=== PATIENT | male | born 1970 | race Caucasian/White ===

== ENCOUNTER 2020-01-01 15:10 | Emergency (ER) | payer SELFPAY ==
[2020-01-01] MEDS ORDERED: Albuterol/Ipratropium 3.0-0.5 MG/3 ML Neb Soln NEB ONE (15:23)
[2020-01-01] MEDS ORDERED: methylPREDNISolone Sodium Succinate 125 MG/2 ML SDV IM ONE (15:23)
--- NOTE | 2020-01-01 15:30 | EDM.PDOC ---
Scribed by Jovita Richards 01/01/20 1530 for Boom Zayas PA ED HPI GENERAL MEDICAL PROBLEM - General Chief Complaint: Respiratory Problem Stated Complaint: SOB Time Seen by Provider: 01/01/20 15:19 Source of Information: Reports: Patient, RN, RN Notes Reviewed History Limitations: Reports: No Limitations - History of Present Illness INITIAL COMMENTS - FREE TEXT/NARRATIVE: This 49 yo male patient reports to the ED with a 5 day history of increased shortness of breath. The patient reports his symptoms have been getting worse over the past 3 days. The patient has not been seen in the clinic for his current symptoms. The patient reports he thinks he is allergic to a cat that his son has living in their house. The patient reports he has been using a family 3Nod nebulizer for the past couple of days with little or no improvement. Duration: Day(s):, Constant, Getting Worse Location: Reports: Chest Quality: Reports: Other Severity: Moderate Improves with: Reports: None Worsens with: Reports: None Context: Reports: Other Associated Symptoms: Reports: Shortness of Breath - Related Data Allergies Allergy/AdvReac Type Severity Reaction Status Date / Time No Known Allergies Allergy Verified 01/01/20 15:24 Home Meds: Home Meds Aspirin 2 tab PO QAM 01/01/20 [History] Brimonidine/Timolol [Combigan 0.2%/0.5% Ophth Soln] 1 drop EYELF DAILY 01/01/20 [History] Calcium Carbonate/Vitamin D3 [Caltrate 600+D 1500 MG-400 Units] 1 tab PO BID 01/01/20 [History] Folic Acid 1 mg PO DAILY 01/01/20 [History] Furosemide 80 mg PO DAILY 01/01/20 [History] Insulin Aspart [NovoLOG] 12 unit INJECT TID 01/01/20 [History] Insulin Detemir [Levemir Flextouch] 42 unit INJECT QAM 01/01/20 [History] Latanoprost 1 drop EYEBOTH DAILY 01/01/20 [History] Pen Needle, Diabetic [Ulticare Pen Needle] 1 each INJECT ASDIRECTED 01/01/20 [History] Potassium Chloride [K-Tab ER] 20 meq PO DAILY 01/01/20 [History] metHOTREXate sodium [Methotrexate] 10 tab PO WEEKLY 01/01/20 [History] predniSONE [Prednisone] 2 tab PO DAILY 01/01/20 [History] ED ROS GENERAL - Review of Systems Review Of Systems: Comprehensive ROS is negative, except as noted in HPI. ED EXAM, GENERAL - Physical Exam Exam: See Below Exam Limited By: No Limitations General Appearance: Alert, WD/WN, Moderate Distress, Obese Eye Exam: Bilateral Eye: EOMI, Normal Inspection, PERRL Nose: Other (copious nasal secretions) Throat/Mouth: Normal Inspection, Normal Lips, Normal Teeth, Normal Gums, Normal Oropharynx, Normal Voice, No Airway Compromise Head: Atraumatic Neck: Normal Inspection, Supple, Non-Tender, Full Range of Motion Respiratory/Chest: Rhonchi, Wheezing Cardiovascular: Normal Peripheral Pulses, Regular Rate, Rhythm, No Edema, No Gallop, No JVD, No Murmur, No Rub GI/Abdominal: Normal Bowel Sounds, Soft, Non-Tender, No Organomegaly, No Distention, No Abnormal Bruit, No Mass (Male) Exam: Deferred Rectal (Males) Exam: Deferred Back Exam: Normal Inspection, Full Range of Motion, NT Extremities: Normal Inspection, Normal Range of Motion, Non-Tender, Normal Capillary Refill, No Pedal Edema Neurological: Alert, Oriented, CN II-XII Intact, Normal Cognition, Normal Gait, Normal Reflexes, No Motor/Sensory Deficits Psychiatric: Normal Affect, Normal Mood Skin Exam: Warm, Dry, Intact, Normal Color, No Rash Lymphatic: No Adenopathy Course - Vital Signs Last Recorded V/S: Last Vital Signs Temp 37.1 C 01/01/20 16:04 Pulse 78 01/01/20 16:04 Resp 24 H 01/01/20 16:04 BP 111/73 01/01/20 16:04 Pulse Ox 97 01/01/20 16:04 - Orders/Labs/Meds Orders: Active Orders 24 hr Category Date Time Status RT Aerosol Therapy [RC] ASDIRECTED Care 01/01/20 15:23 Active CULTURE BLOOD [BC] Stat Lab 01/01/20 15:40 Received CULTURE SPUTUM + SMEAR [RM] Stat Lab 01/01/20 16:00 Received Labs: Laboratory Tests 01/01/20 01/01/20 01/01/20 Range/Units 15:40 15:40 15:40 WBC 18.3 H (5.0-10.0) 10^3/uL RBC 4.23 L (4.6-6.2) 10^6/uL Hgb 14.7 (14.0-18.0) g/dL Hct 44.1 (40.0-54.0) % MCV 104.3 H (80-100) fL MCH 34.8 H (27.0-34.0) pg MCHC 33.3 (33.0-35.0) g/dL Plt Count 193 (150-450) 10^3/uL Neut % (Auto) 89.4 H (42.2-75.2) % Lymph % (Auto) 5.5 L (20.5-50.1) % [place] % (Auto) 4.5 (2-8) % Eos % (Auto) 0.3 L (1.0-3.0) % Baso % (Auto) 0.3 (0.0-1.0) % Sodium 140 (136-145) mmol/L Potassium 4.0 (3.5-5.1) mmol/L Chloride 103 (98-107) mmol/L Carbon Dioxide 27 (21-32) mmol/L Anion Gap 14.0 H (7-13) mEq/L BUN 12 (7-18) mg/dL Creatinine 1.08 (0.70-1.30) mg/dL Est Cr Clr Drug Dosing 70.39 mL/min Estimated GFR (MDRD) > 60 BUN/Creatinine Ratio 11.1 (No establ ref range) Glucose 146 H (74-99) mg/dL Lactic Acid 1.4 (0.4-2.0) mmol/L Calcium 8.6 (8.5-10.1) mg/dL Total Bilirubin 1.1 H (0.2-1.0) mg/dL AST 16 (15-37) U/L ALT 25 (16-63) U/L Alkaline Phosphatase 61 (46-116) U/L B-Natriuretic Peptide (0-100) pg/ml Total Protein 7.5 (6.4-8.2) g/dL Albumin 3.3 L (3.4-5.0) g/dL Globulin 4.2 Albumin/Globulin Ratio 0.79 SARS-CoV-2 RNA (RT-PCR) (NEGATIVE) 01/01/20 01/01/20 Range/Units 15:40 15:55 WBC (5.0-10.0) 10^3/uL RBC (4.6-6.2) 10^6/uL Hgb (14.0-18.0) g/dL Hct (40.0-54.0) % MCV (80-100) fL MCH (27.0-34.0) pg MCHC (33.0-35.0) g/dL Plt Count (150-450) 10^3/uL Neut % (Auto) (42.2-75.2) % Lymph % (Auto) (20.5-50.1) % [place] % (Auto) (2-8) % Eos % (Auto) (1.0-3.0) % Baso % (Auto) (0.0-1.0) % Sodium (136-145) mmol/L Potassium (3.5-5.1) mmol/L Chloride (98-107) mmol/L Carbon Dioxide (21-32) mmol/L Anion Gap (7-13) mEq/L BUN (7-18) mg/dL Creatinine (0.70-1.30) mg/dL Est Cr Clr Drug Dosing mL/min Estimated GFR (MDRD) BUN/Creatinine Ratio (No establ ref range) Glucose (74-99) mg/dL Lactic Acid (0.4-2.0) mmol/L Calcium (8.5-10.1) mg/dL Total Bilirubin (0.2-1.0) mg/dL AST (15-37) U/L ALT (16-63) U/L Alkaline Phosphatase (46-116) U/L B-Natriuretic Peptide 362 H (0-100) pg/ml Total Protein (6.4-8.2) g/dL Albumin (3.4-5.0) g/dL Globulin Albumin/Globulin Ratio SARS-CoV-2 RNA (RT-PCR) Negative (NEGATIVE) Meds: Medications Discontinued Medications Generic Name Dose Route Start Last Admin Trade Name Freq PRN Reason Stop Dose Admin Albuterol/Ipratropium 3 ml 01/01/20 15:23 01/01/20 15:36 Duoneb 3.0-0.5 Mg/3 Ml NEB 01/01/20 15:24 3 ml ONETIME ONE Administration Azithromycin 500 mg 01/01/20 16:43 Zithromax PO 01/01/20 16:44 ONETIME ONE Azithromycin 1,000 mg 01/01/20 16:43 Zithromax 200 Mg/5 Ml Susp PO 01/01/20 16:44 ONETIME ONE Ceftriaxone Sodium 1 gm 01/01/20 16:50 Rocephin IM 01/01/20 16:51 ONETIME ONE Methylprednisolone Sodium Succinate 125 mg 01/01/20 15:23 01/01/20 15:44 Solu-Medrol IM 01/01/20 15:24 125 mg ONETIME ONE Administration Departure - Departure Time of Disposition: 16:53 Disposition: Home, Self-Care 01 Condition: Fair Clinical Impression: Bronchitis - Discharge Information *PRESCRIPTION DRUG MONITORING PROGRAM REVIEWED*: Not Applicable *COPY OF PRESCRIPTION DRUG MONITORING REPORT IN PATIENT PADMINI: Not Applicable Instructions: Upper Respiratory Infection, Adult, [id number] Forms: ED Department Discharge Care Plan Goals: The patient was advised of the examination, lab and x-ray results during the visit. The patient was given an injection of Solumedrol, an injection of Rocephin and an oral dose of Azithromycin while in the ED. The patient was discharged with a script for Azithromycin (500 mg) #4 to take 1 by mouth daily for 4 days. The patient was encouraged to follow-up with his primary care facility for continued evaluation and further management. If the patient has any additional symptoms or concerns, the patient should either visit his primary care facility or return to the emergency department. Sepsis Event Note (ED) - Focused Exam Vital Signs: Vital Signs Temp Pulse Resp BP BP Pulse Ox 01/01/20 16:04 37.1 C 78 24 H 111/73 106/38 L 97 01/01/20 15:37 70 - My Orders Last 24 Hours: My Active Orders 01/01/20 15:23 RT Aerosol Therapy [RC] ASDIRECTED 01/01/20 15:40 CULTURE BLOOD [BC] Stat 01/01/20 16:00 CULTURE SPUTUM + SMEAR [RM] Stat - Assessment/Plan Last 24 Hours: My Active Orders 01/01/20 15:23 RT Aerosol Therapy [RC] ASDIRECTED 01/01/20 15:40 CULTURE BLOOD [BC] Stat 01/01/20 16:00 CULTURE SPUTUM + SMEAR [RM] Stat I have read and agree with the documentation that has been completed regarding this visit. By signing this record, I attest that the documentation was completed in my physical presence and is an accurate record of the encounter.
[2020-01-01 16:08] LABS: CHLORIDE,CL 103 mmol/L (98-107); SODIUM,NA 140 mmol/L (136-145)
[2020-01-01] MEDS ORDERED: Azithromycin 200 MG/5 ML Susp 30 ML Bottle PO ONE (16:43)
[2020-01-01] MEDS ORDERED: Azithromycin 250 MG Tab PO ONE (16:43)
--- NOTE | 2020-01-01 16:43 | CR ---
PROCEDURE INFORMATION: Exam: XR Chest, 2 Views Exam date and time: 01/01/2020 4:32 PM Age: 49 years old Clinical indication: Shortness of breath; Additional info: Short of breath TECHNIQUE: Imaging protocol: XR of the chest Views: 2 views. COMPARISON: No relevant prior studies available. FINDINGS: Lungs: Linear atelectasis or scarring at the left lung base. Scarring at right lung base. There are no suspicious pulmonary nodules or areas of lung consolidation. Pleural space: Unremarkable. No pleural effusion. No pneumothorax. Heart/Mediastinum: Unremarkable. No cardiomegaly. Bones/joints: Age appropriate. IMPRESSION: 1. No pneumonia. 2. Linear atelectasis or scarring at the left lung base. Scarring at right lung base.
[2020-01-01] MEDS ORDERED: cefTRIAXone 1 GM Vial IM ONE (16:50)
[2020-01-01] MEDS: Water For Injection, Sterile 20 ML ONE ×2 (17:13→17:39)
[2020-01-01] MEDS ORDERED: WATER FOR INJECTION STERILE INJECT ONE (17:15)
== END 2020-01-01 17:30 | disposition home or self-care (01) ==
LOC: DL.ED 15:10
DX: J40 Bronchitis, not specified as acute or chronic (principal); Z20.828 Contact with and (suspected) exposure to other viral communicable diseases; Z79.82 Long term (current) use of aspirin; Z79.899 Other long term (current) drug therapy
CPT/HCPCS: 36415; 71046; 80053; 83605; 83880; 85025; 87040; 87070; 87205; 87635; 94640; 96372; 99285; A9270; J0696; J2930; J7620-GY; U0002

== ENCOUNTER 2020-10-11 16:18 | Inpatient (IN) | payer MEDICARE, OTHER ==
[2020-10-11] MEDS ORDERED: Sodium Chloride 0.9% 10 ML Syringe FLUSH PRN ×2 (16:49→17:28)
[2020-10-11] MEDS ORDERED: Sodium Chloride 0.9% 1,000 ML IV ONE ×2 (16:52→17:28)
[2020-10-11] MEDS ORDERED: Ibuprofen 800 MG Tab PO ONE (16:58)
[2020-10-11] MEDS ORDERED: Acetaminophen 325 MG Tab PO ONE (16:58)
--- NOTE | 2020-10-11 17:05 | CR ---
PROCEDURE INFORMATION: Exam: XR Chest Exam date and time: 10/11/2020 5:00 PM Age: 50 years old Clinical indication: Fever and shortness of breath; Additional info: Fever, short of breath TECHNIQUE: Imaging protocol: XR of the chest Views: 1 view. COMPARISON: CR Chest 2V 01/01/2020 4:32 PM FINDINGS: Lungs: Unremarkable. No consolidation. Pleural spaces: Unremarkable. No pleural effusion. No pneumothorax. Heart/Mediastinum: Unremarkable. No cardiomegaly. Bones/joints: Unremarkable. IMPRESSION: No acute findings.
--- NOTE | 2020-10-11 17:06 | EDM.PDOC ---
<RuchiBridgetteAdalbertorhondaEmekaHilda - Last Filed: 10/11/20 18:26> ED HPI GENERAL MEDICAL PROBLEM - General Chief Complaint: Respiratory Problem Stated Complaint: COVID+ Time Seen by Provider: 10/11/20 17:01 Source of Information: Reports: Patient History Limitations: Reports: No Limitations - History of Present Illness INITIAL COMMENTS - FREE TEXT/NARRATIVE: Patient is a 50 y.o. male who presents to the ED with c/o feeling short of breath, generalized body aches, and fever. The patient states he began feeling short of breath 3 days ago and developed body aches. He states his symptoms have persisted and worsened over the past 3 days and he's had a fever with chills the past two days of 102 Fahrenheit. He took ibuprofen yesterday with no relief. The patient reports he's also had associated headache, rhinorrhea, sore throat, and cough with clear production. The patient also reports he developed sharp pain in his left hand today and noticed sores on the tips of his fingers. He denies dizziness, vision changes, chest pain, abdominal pain, hematuria, dysuria, or hematochezia or melena. Last bowel movement was today. He did not take his daily medications today. He denies any sick contacts. He denies alcohol, tobacco or illicit drug use. 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 Generalized Pain Score (Numeric/FACES): 10 - Related Data Allergies Allergy/AdvReac Type Severity Reaction Status Date / Time No Known Allergies Allergy Verified 10/11/20 16:37 Home Meds: Home Meds Brimonidine/Timolol [Combigan 0.2%/0.5% Ophth Soln] 1 drop EYELF DAILY 01/01/20 [History] Calcium Carbonate/Vitamin D3 [Caltrate 600+D 1500 MG-400 Units] 1 tab PO BID 01/01/20 [History] Folic Acid 1 mg PO DAILY 01/01/20 [History] Furosemide 80 mg PO DAILY 01/01/20 [History] Insulin Aspart [NovoLOG] 12 unit INJECT TID 01/01/20 [History] Insulin Detemir [Levemir Flextouch] 42 unit INJECT QAM 01/01/20 [History] Latanoprost 1 drop EYEBOTH DAILY 01/01/20 [History] Pen Needle, Diabetic [Ulticare Pen Needle] 1 each INJECT ASDIRECTED 01/01/20 [History] Potassium Chloride [K-Tab ER] 20 meq PO DAILY 01/01/20 [History] metHOTREXate sodium [Methotrexate] 10 tab PO WEEKLY 01/01/20 [History] predniSONE [Prednisone] 1 tab PO DAILY 01/01/20 [History] Albuterol/Ipratropium [DuoNeb 3.0-0.5 MG/3 ML] 3 ml NEB Q6H PRN 10/11/20 [History] Non-Formulary Medication [NF Drug] 1 applic TOP BID 10/11/20 [History] Sertraline [Zoloft] 100 mg PO DAILY 10/11/20 [History] Sildenafil Citrate [Viagra] 50 mg PO ASDIRECTED PRN 10/11/20 [History] Aspirin [Halfprin] 81 mg PO DAILY 10/12/20 [History] Past Medical History HEENT History: Reports: Cataract, Glaucoma, Impaired Vision Cardiovascular History: Reports: Heart Failure Respiratory History: Reports: Asthma, SOB Musculoskeletal History: Reports: RA Endocrine/Metabolic History: Reports: Diabetes, Type II Hematologic History: Reports: Folic Acid Social & Family History - Family History Family Medical History: No Pertinent Family History - Tobacco Use Tobacco Use Status *Q: Current Every Day Tobacco User Years of Tobacco use: 40 Packs/Tins Daily: 1 - Caffeine Use Caffeine Use: Reports: None - Recreational Drug Use Recreational Drug Use: No ED ROS GENERAL - Review of Systems Review Of Systems: Comprehensive ROS is negative, except as noted in HPI. ED EXAM, GENERAL - Physical Exam Exam: See Below Exam Limited By: No Limitations General Appearance: Alert, WD/WN, Mild Distress Eye Exam: Bilateral Eye: EOMI, Normal Inspection, PERRL Ears: Normal External Exam, Normal Canal, Hearing Grossly Normal, Normal TMs Nose: Normal Inspection, Normal Mucosa, No Blood Throat/Mouth: Normal Inspection, Normal Lips, Normal Teeth, Normal Gums, Normal Oropharynx, Normal Voice, No Airway Compromise Head: Atraumatic, Normocephalic Neck: Normal Inspection, Supple, Non-Tender, Full Range of Motion Respiratory/Chest: No Respiratory Distress, Lungs Clear, Normal Breath Sounds, No Accessory Muscle Use, Chest Non-Tender Cardiovascular: Normal Peripheral Pulses, No Edema, No Gallop, No JVD, No Murmur, No Rub, Tachycardia GI/Abdominal: Normal Bowel Sounds, Soft, Non-Tender, No Organomegaly, No Distention, No Abnormal Bruit, No Mass (Male) Exam: Deferred Rectal (Males) Exam: Deferred Back Exam: Normal Inspection, Full Range of Motion, NT Extremities: Normal Inspection, Normal Range of Motion, Non-Tender, Normal Capillary Refill, No Pedal Edema Neurological: Alert, Oriented, CN II-XII Intact, Normal Cognition, Normal Gait, Normal Reflexes, No Motor/Sensory Deficits Psychiatric: Normal Affect, Normal Mood Skin Exam: Warm, Dry, Intact, Other (Patient has increased redness of the left fingertips and has blood filled blisters on the distal 5th and 2nd digit ) Lymphatic: No Adenopathy Course - Radiology Interpretation Free Text/Narrative:: Chest x-ray Conclusion: No acute findings. See radiologist report. Clay Sinha MD - Re-Assessments/Exams Free Text/Narrative Re-Assessment/Exam: Reviewed the patient's physical exam, chest xray, and lab results. Chest xray showed no acute findings. WBC was elevated at 21.1, D-dimer was >5,000, Sodium low at 127 and CRP was elevated at >36. Covid and Influenza were both negative. Patient was febrile at 38.6, BP 140/44 and pulse was 110. Patient meets sepsis criteria. He was given 800mg ibuprofen and 975 mg acetaminophen. Patient was also started on 2 liters normal saline Levaquin. 2 mg morphine for pain with good relief. 10/11/20 18:37 Departure - Departure Disposition: Admitted As Inpatient 64 Clinical Impression: Generalized body aches, Hyponatremia, Elevated d-dimer Sepsis Qualifiers: Sepsis type: sepsis due to unspecified organism Sepsis acute organ dysfunction status: without acute organ dysfunction Qualified Code(s): A41.9 - Sepsis, unspecified organism Rheumatoid arthritis Qualifiers: Rheumatoid arthritis location: unspecified site Rheumatoid factor presence: unspecified presence Qualified Code(s): M06.9 - Rheumatoid arthritis, unspecified - Discharge Information Sepsis Event Note (ED) - Evaluation Sepsis Screening Result: No Definite Risk <Deandre Flores Souleymane - Last Filed: 10/11/20 18:52> Course - Re-Assessments/Exams Free Text/Narrative Re-Assessment/Exam: 10/11/20 I personally performed or re-performed the physical examination and medical decision making. I have verified all student documentation or findings, including history, physical exam and/or medical decision making. <Trish Guthrie - Last Filed: 10/12/20 02:50> ED HPI GENERAL MEDICAL PROBLEM - General Source of Information: Reports: Patient History Limitations: Reports: No Limitations ED ROS GENERAL - Review of Systems Review Of Systems: See Below Constitutional: Reports: Fever, Chills, Malaise, Decreased Appetite HEENT: Reports: No Symptoms Respiratory: Reports: Shortness of Breath GI/Abdominal: Reports: Diarrhea (last night watery multiple stools) Musculoskeletal: Reports: Joint Pain, Muscle Pain Skin: Reports: Rash (finger tips, purple painful) ED EXAM, GENERAL - Physical Exam Exam: See Below Exam Limited By: No Limitations General Appearance: Alert, Mild Distress, Obese Ears: Normal External Exam, Hearing Grossly Normal Nose: Normal Inspection Throat/Mouth: Normal Inspection Head: Atraumatic, Normocephalic Neck: Normal Inspection Respiratory/Chest: Lungs Clear, Wheezing (faint expiratory, clears with cough or deep breathing) GI/Abdominal: Normal Bowel Sounds, Soft Extremities: Normal Inspection, Normal Range of Motion Neurological: Alert, Oriented, Normal Cognition Psychiatric: Normal Affect Skin Exam: Warm, Dry, Intact, Wound/Incision (purpuric lesion fingertips and base thumb) Course - Vital Signs Last Recorded V/S: Last Vital Signs Temp 96.3 F L 10/11/20 20:29 Pulse 82 10/12/20 00:00 Resp 16 10/11/20 20:29 BP 103/46 L 10/12/20 00:00 Pulse Ox 98 10/12/20 00:00 - Orders/Labs/Meds Orders: Active Orders 24 hr Category Date Time Status Peripheral IV Care [RC] . DIRECTED Care 10/11/20 16:50 Active Peripheral IV Care [RC] . DIRECTED Care 10/11/20 17:28 Active CULTURE BLOOD [BC] Stat Lab 10/11/20 17:04 Received CULTURE BLOOD [BC] Stat Lab 10/11/20 17:09 Received CULTURE STREP A CONFIRMATION [] Stat Lab 10/11/20 17:10 Results STREP SCRN A RAPID W CULT CONF [] Stat Lab 10/11/20 17:10 Results Sodium Chloride 0.9% [Saline Flush] Med 10/11/20 16:49 Active 10 ml FLUSH ASDIRECTED PRN Sodium Chloride 0.9% [Saline Flush] Med 10/11/20 17:28 Active 10 ml FLUSH ASDIRECTED PRN Blood Culture x2 Reflex Set [OM.PC] Stat Ot 10/11/20 16:49 Ordered Peripheral IV Insertion Adult [OM.PC] Stat Ot 10/11/20 16:50 Ordered Peripheral IV Insertion Adult [OM.PC] Stat Ot 10/11/20 17:28 Ordered Medication Orders Acetaminophen (Acetaminophen 650 Mg Supp) 650 mg RECTAL Q4H PRN PRN Reason: Pain (mild 1-3) Albuterol/Ipratropium (Albuterol/Ipratropium 3.0-0.5 Mg/3 Ml Neb Soln) 3 ml NEB Q6H PRN PRN Reason: Shortness of Breath Aspirin (Aspirin 81 Mg Tab.Chew) 81 mg PO QAM [facility] Docusate Sodium (Docusate Sodium 100 Mg Cap) 100 mg PO BID PRN PRN Reason: Constipation Enoxaparin Sodium (Enoxaparin 40 Mg/0.4 Ml Syringe) 40 mg SUBCUT Q24H [facility] Last Admin: 10/11/20 22:27 Dose: 40 mg Documented by: KANDI Folic Acid (Folic Acid 1 Mg Tab) 1 mg PO DAILY [facility] Hydrocortisone Sodium Succinate (Hydrocortisone Sodium Succinate 250 Mg/2 Ml Sdv) 75 mg IV Q6H [facility] Last Admin: 10/11/20 22:39 Dose: 75 mg Documented by: KANDI Sodium Chloride (Normal Saline) 1,000 mls @ 125 mls/hr IV ASDIRECTED [facility] Last Admin: 10/11/20 22:35 Dose: 125 mls/hr Documented by: KANDI Sodium Chloride (Normal Saline) 1,000 mls @ 500 mls/hr IV ASDIRECTED [facility] Last Admin: 10/11/20 22:30 Dose: 500 mls/hr Documented by: KANDI Insulin Glargine (Insulin Glarg,Human.Rec.Analog 100 Unit/Ml) 42 unit SUBCUT QAM [facility] Insulin Human Lispro (Insulin Lispro 100 Units/Ml 3 Ml Vial) 12 unit SUBCUT TID [facility] Latanoprost (Latanoprost 0.005% Ophth Soln 2.5 Ml Bottle) 0 ml EYEBOTH DAILY [facility] Levofloxacin (Levofloxacin 250 Mg Tab) 750 mg PO Q24H [facility] Non-Formulary Medication (Brimonidine/Timolol [Combigan 0.2%/0.5% Ophth Soln]) 1 drop EYELF DAILY [facility] Ondansetron HCl (Ondansetron 4 Mg/2 Ml Sdv) 4 mg IVPUSH Q6H PRN PRN Reason: Nausea/Vomiting Prednisone (Prednisone 5 Mg Tab) 5 mg PO DAILY [facility] Last Admin: 10/11/20 22:27 Dose: 5 mg Documented by: KANDI Sertraline HCl (Sertraline 50 Mg Tab) 100 mg PO DAILY [facility] Sodium Chloride (Sodium Chloride 0.9% 10 Ml Syringe) 10 ml FLUSH ASDIRECTED PRN PRN Reason: Keep Vein Open Last Admin: 10/11/20 16:55 Dose: 10 ml Documented by: [id number] Sodium Chloride (Sodium Chloride 0.9% 10 Ml Syringe) 10 ml FLUSH ASDIRECTED PRN PRN Reason: Keep Vein Open Last Admin: 10/11/20 18:24 Dose: 10 ml Documented by: [id number] Zolpidem Tartrate (Zolpidem 5 Mg Tab) 5 mg PO BEDTIME PRN PRN Reason: Sleep Labs: Laboratory Tests 10/11/20 10/11/20 10/11/20 Range/Units 17:04 17:04 17:04 WBC 21.1 H (5.0-10.0) 10^3/uL RBC 4.15 L (4.6-6.2) 10^6/uL Hgb 14.4 (14.0-18.0) g/dL Hct 41.0 (40.0-54.0) % MCV 98.8 D (80-100) fL MCH 34.7 H (27.0-34.0) pg MCHC 35.1 H (33.0-35.0) g/dL Plt Count 129 L (150-450) 10^3/uL Neut % (Auto) 94.6 H (42.2-75.2) % Lymph % (Auto) 1.9 L (20.5-50.1) % [place] % (Auto) 3.4 (2-8) % Eos % (Auto) 0.0 L (1.0-3.0) % Baso % (Auto) 0.1 (0.0-1.0) % Add Manual Diff Yes Neutrophils % (Manual) 63 (42-75) % Band Neutrophils % 32 % Lymphocytes % (Manual) 1 L (20-50) % Monocytes % (Manual) 4 (2-8) % Vacuolated Monocytes 1+ slight Toxic Granulation Few Platelet Estimate Decreased PT (9.0-12.0) SEC INR (0.9-1.2) D-Dimer, Quantitative > 5000 H (0-400) ng/mL Sodium 127 L D (136-145) mmol/L Potassium 3.9 (3.5-5.1) mmol/L Chloride 93 L (98-107) mmol/L Carbon Dioxide 24 (21-32) mmol/L Anion Gap 13.9 H (7-13) mEq/L BUN 18 (7-18) mg/dL Creatinine 1.30 (0.70-1.30) mg/dL Est Cr Clr Drug Dosing 57.82 mL/min Estimated GFR (MDRD) 58 BUN/Creatinine Ratio 13.8 (No establ ref range) Glucose 162 H (74-99) mg/dL Lactic Acid (0.4-2.0) mmol/L Calcium 8.1 L (8.5-10.1) mg/dL Total Bilirubin 0.8 (0.2-1.0) mg/dL AST 61 H (15-37) U/L ALT 46 (16-63) U/L Alkaline Phosphatase 56 (46-116) U/L C-Reactive Protein > 36.0 H (0.0-0.9) mg/dL Total Protein 6.9 (6.4-8.2) g/dL Albumin 2.6 L (3.4-5.0) g/dL Globulin 4.3 Albumin/Globulin Ratio 0.60 Amylase 37 (25-115) U/L Lipase 44 L (73-393) U/L Urine Color (YELLOW) Urine Appearance (CLEAR) Urine pH (5.0-9.0) Ur Specific Hinkley (1.005-1.030) Urine Protein (NEGATIVE) Urine Glucose (UA) (NEGATIVE) Urine Ketones (NEGATIVE) Urine Occult Blood (NEGATIVE) Urine Nitrite (NEGATIVE) Urine Bilirubin (NEGATIVE) Urine Urobilinogen (0.2-1.0) mg/dL Ur Leukocyte Esterase (NEGATIVE) Urine RBC /HPF Urine WBC (0-5/HPF) /HPF Ur Epithelial Cells (NOT SEEN) /HPF Urine Bacteria (0-FEW/HPF) /HPF Urine Opiates Screen (NEGATIVE) Ur Oxycodone Screen (NEGATIVE) Urine Methadone Screen (NEGATIVE) Ur Barbiturates Screen (NEGATIVE) U Tricyclic Antidepress (NEGATIVE) Ur Phencyclidine Scrn (NEGATIVE) Ur Amphetamine Screen (NEGATIVE) U Methamphetamines Scrn (NEGATIVE) Urine MDMA Screen (NEGATIVE) U Benzodiazepines Scrn (NEGATIVE) Urine Cocaine Screen (NEGATIVE) U Marijuana (THC) Screen (NEGATIVE) Ethyl Alcohol (0) mg/dL Influenza Type A RNA (NEGATIVE) Influenza Type B RNA (NEGATIVE) SARS-CoV-2 RNA (CAROL) (NEGATIVE) 10/11/20 10/11/20 10/11/20 Range/Units 17:04 17:04 17:04 WBC (5.0-10.0) 10^3/uL RBC (4.6-6.2) 10^6/uL Hgb (14.0-18.0) g/dL Hct (40.0-54.0) % MCV (80-100) fL MCH (27.0-34.0) pg MCHC (33.0-35.0) g/dL Plt Count (150-450) 10^3/uL Neut % (Auto) (42.2-75.2) % Lymph % (Auto) (20.5-50.1) % [place] % (Auto) (2-8) % Eos % (Auto) (1.0-3.0) % Baso % (Auto) (0.0-1.0) % Add Manual Diff Neutrophils % (Manual) (42-75) % Band Neutrophils % % Lymphocytes % (Manual) (20-50) % Monocytes % (Manual) (2-8) % Vacuolated Monocytes Toxic Granulation Platelet Estimate PT 12.5 H (9.0-12.0) SEC INR 1.3 H (0.9-1.2) D-Dimer, Quantitative (0-400) ng/mL Sodium (136-145) mmol/L Potassium (3.5-5.1) mmol/L Chloride (98-107) mmol/L Carbon Dioxide (21-32) mmol/L Anion Gap (7-13) mEq/L BUN (7-18) mg/dL Creatinine (0.70-1.30) mg/dL Est Cr Clr Drug Dosing mL/min Estimated GFR (MDRD) BUN/Creatinine Ratio (No establ ref range) Glucose (74-99) mg/dL Lactic Acid 1.6 (0.4-2.0) mmol/L Calcium (8.5-10.1) mg/dL Total Bilirubin (0.2-1.0) mg/dL AST (15-37) U/L ALT (16-63) U/L Alkaline Phosphatase (46-116) U/L C-Reactive Protein (0.0-0.9) mg/dL Total Protein (6.4-8.2) g/dL Albumin (3.4-5.0) g/dL Globulin Albumin/Globulin Ratio Amylase (25-115) U/L Lipase (73-393) U/L Urine Color (YELLOW) Urine Appearance (CLEAR) Urine pH (5.0-9.0) Ur Specific Hinkley (1.005-1.030) Urine Protein (NEGATIVE) Urine Glucose (UA) (NEGATIVE) Urine Ketones (NEGATIVE) Urine Occult Blood (NEGATIVE) Urine Nitrite (NEGATIVE) Urine Bilirubin (NEGATIVE) Urine Urobilinogen (0.2-1.0) mg/dL Ur Leukocyte Esterase (NEGATIVE) Urine RBC /HPF Urine WBC (0-5/HPF) /HPF Ur Epithelial Cells (NOT SEEN) /HPF Urine Bacteria (0-FEW/HPF) /HPF Urine Opiates Screen (NEGATIVE) Ur Oxycodone Screen (NEGATIVE) Urine Methadone Screen (NEGATIVE) Ur Barbiturates Screen (NEGATIVE) U Tricyclic Antidepress (NEGATIVE) Ur Phencyclidine Scrn (NEGATIVE) Ur Amphetamine Screen (NEGATIVE) U Methamphetamines Scrn (NEGATIVE) Urine MDMA Screen (NEGATIVE) U Benzodiazepines Scrn (NEGATIVE) Urine Cocaine Screen (NEGATIVE) U Marijuana (THC) Screen (NEGATIVE) Ethyl Alcohol < 3 (0) mg/dL Influenza Type A RNA (NEGATIVE) Influenza Type B RNA (NEGATIVE) SARS-CoV-2 RNA (CAROL) (NEGATIVE) 10/11/20 10/11/20 10/11/20 Range/Units 17:10 17:31 19:26 WBC (5.0-10.0) 10^3/uL RBC (4.6-6.2) 10^6/uL Hgb (14.0-18.0) g/dL Hct (40.0-54.0) % MCV (80-100) fL MCH (27.0-34.0) pg MCHC (33.0-35.0) g/dL Plt Count (150-450) 10^3/uL Neut % (Auto) (42.2-75.2) % Lymph % (Auto) (20.5-50.1) % [place] % (Auto) (2-8) % Eos % (Auto) (1.0-3.0) % Baso % (Auto) (0.0-1.0) % Add Manual Diff Neutrophils % (Manual) (42-75) % Band Neutrophils % % Lymphocytes % (Manual) (20-50) % Monocytes % (Manual) (2-8) % Vacuolated Monocytes Toxic Granulation Platelet Estimate PT (9.0-12.0) SEC INR (0.9-1.2) D-Dimer, Quantitative (0-400) ng/mL Sodium (136-145) mmol/L Potassium (3.5-5.1) mmol/L Chloride (98-107) mmol/L Carbon Dioxide (21-32) mmol/L Anion Gap (7-13) mEq/L BUN (7-18) mg/dL Creatinine (0.70-1.30) mg/dL Est Cr Clr Drug Dosing mL/min Estimated GFR (MDRD) BUN/Creatinine Ratio (No establ ref range) Glucose (74-99) mg/dL Lactic Acid (0.4-2.0) mmol/L Calcium (8.5-10.1) mg/dL Total Bilirubin (0.2-1.0) mg/dL AST (15-37) U/L ALT (16-63) U/L Alkaline Phosphatase (46-116) U/L C-Reactive Protein (0.0-0.9) mg/dL Total Protein (6.4-8.2) g/dL Albumin (3.4-5.0) g/dL Globulin Albumin/Globulin Ratio Amylase (25-115) U/L Lipase (73-393) U/L Urine Color Yellow (YELLOW) Urine Appearance Clear (CLEAR) Urine pH 6.0 (5.0-9.0) Ur Specific Hinkley 1.020 (1.005-1.030) Urine Protein 100 H (NEGATIVE) Urine Glucose (UA) Negative (NEGATIVE) Urine Ketones Trace H (NEGATIVE) Urine Occult Blood Moderate H (NEGATIVE) Urine Nitrite Negative (NEGATIVE) Urine Bilirubin Negative (NEGATIVE) Urine Urobilinogen 0.2 (0.2-1.0) mg/dL Ur Leukocyte Esterase Negative (NEGATIVE) Urine RBC 5-10 H /HPF Urine WBC 0-5 (0-5/HPF) /HPF Ur Epithelial Cells Few (NOT SEEN) /HPF Urine Bacteria Few (0-FEW/HPF) /HPF Urine Opiates Screen Positive H (NEGATIVE) Ur Oxycodone Screen Negative (NEGATIVE) Urine Methadone Screen Negative (NEGATIVE) Ur Barbiturates Screen Negative (NEGATIVE) U Tricyclic Antidepress Negative (NEGATIVE) Ur Phencyclidine Scrn Negative (NEGATIVE) Ur Amphetamine Screen Negative (NEGATIVE) U Methamphetamines Scrn Negative (NEGATIVE) Urine MDMA Screen Negative (NEGATIVE) U Benzodiazepines Scrn Negative (NEGATIVE) Urine Cocaine Screen Negative (NEGATIVE) U Marijuana (THC) Screen Negative (NEGATIVE) Ethyl Alcohol (0) mg/dL Influenza Type A RNA Negative (NEGATIVE) Influenza Type B RNA Negative (NEGATIVE) SARS-CoV-2 RNA (CAROL) Negative (NEGATIVE) Meds: Medications Generic Name Dose Route Start Last Admin Trade Name Freq PRN Reason Stop Dose Admin Acetaminophen 650 mg 10/11/20 20:28 Acetaminophen 650 Mg Supp RECTAL Q4H PRN Pain (mild 1-3) Albuterol/Ipratropium 3 ml 10/11/20 22:03 Albuterol/Ipratropium 3.0-0.5 Mg/3 Ml Neb Soln NEB Q6H PRN Shortness of Breath Aspirin 81 mg 10/12/20 09:00 Aspirin 81 Mg Tab.Chew PO QAM ADALBERTO Docusate Sodium 100 mg 10/11/20 20:28 Docusate Sodium 100 Mg Cap PO BID PRN Constipation Enoxaparin Sodium 40 mg 10/11/20 20:30 10/11/20 22:27 Enoxaparin 40 Mg/0.4 Ml Syringe SUBCUT 40 mg Q24H ADALBERTO Administration Folic Acid 1 mg 10/12/20 09:00 Folic Acid 1 Mg Tab PO DAILY [facility] Hydrocortisone Sodium Succinate 75 mg 10/11/20 22:30 10/11/20 22:39 Hydrocortisone Sodium Succinate 250 Mg/2 Ml Sdv IV 75 mg Q6H ADALBERTO Administration Sodium Chloride 1,000 mls @ 125 mls/hr 10/11/20 20:45 10/11/20 22:35 Normal Saline IV 125 mls/hr ASDIRECTED ADALBERTO Administration Sodium Chloride 1,000 mls @ 500 mls/hr 10/11/20 22:30 10/11/20 22:30 Normal Saline IV 500 mls/hr ASDIRECTED ADALBERTO Administration Insulin Glargine 42 unit 10/12/20 09:00 Insulin Glarg,Human.Rec.Analog 100 Unit/Ml SUBCUT QAM [facility] Insulin Human Lispro 12 unit 10/12/20 09:00 Insulin Lispro 100 Units/Ml 3 Ml Vial SUBCUT TID [facility] Latanoprost 0 ml 10/12/20 09:00 Latanoprost 0.005% Ophth Soln 2.5 Ml Bottle EYEBOTH DAILY [facility] Levofloxacin 750 mg 10/12/20 18:00 Levofloxacin 250 Mg Tab PO Q24H [facility] Non-Formulary Medication 1 drop 10/12/20 09:00 Brimonidine/Timolol [Combigan 0.2%/0.5% Ophth Soln] EYELF DAILY [facility] Ondansetron HCl 4 mg 10/11/20 20:28 Ondansetron 4 Mg/2 Ml Sdv IVPUSH Q6H PRN Nausea/Vomiting Prednisone 5 mg 10/11/20 22:15 10/11/20 22:27 Prednisone 5 Mg Tab PO 5 mg DAILY [facility] Administration Sertraline HCl 100 mg 10/12/20 09:00 Sertraline 50 Mg Tab PO DAILY [facility] Sodium Chloride 10 ml 10/11/20 16:49 10/11/20 16:55 Sodium Chloride 0.9% 10 Ml Syringe FLUSH 10 ml ASDIRECTED PRN Administration Keep Vein Open Sodium Chloride 10 ml 10/11/20 17:28 10/11/20 18:24 Sodium Chloride 0.9% 10 Ml Syringe FLUSH 10 ml ASDIRECTED PRN Administration Keep Vein Open Zolpidem Tartrate 5 mg 10/11/20 20:28 Zolpidem 5 Mg Tab PO BEDTIME PRN Sleep Discontinued Medications Generic Name Dose Route Start Last Admin Trade Name Lalit PRN Reason Stop Dose Admin Acetaminophen 975 mg 10/11/20 16:58 10/11/20 17:05 Acetaminophen 325 Mg Tab PO 10/11/20 16:59 975 mg NOW ONE Administration Sodium Chloride 1,000 mls @ 999 mls/hr 10/11/20 16:52 10/11/20 18:06 Normal Saline IV 10/11/20 17:52 Infused .BOLUS ONE Infusion Levofloxacin/Dextrose 500 mg/ 100 mls @ 100 mls/hr 10/11/20 17:27 10/11/20 21:04 Premix IV 10/11/20 18:26 Infused ONETIME ONE Infusion Sodium Chloride 1,000 mls @ 999 mls/hr 10/11/20 17:28 10/11/20 21:04 Normal Saline IV 10/11/20 18:28 Infused .BOLUS ONE Infusion Vancomycin HCl 1.5 gm/ Premix 300 mls @ 200 mls/hr 10/11/20 22:24 10/11/20 22:44 IV 10/11/20 23:53 200 mls/hr ONETIME ONE Administration Piperacillin Sod/Tazobactam 100 mls @ 200 mls/hr 10/11/20 22:30 10/12/20 00:21 Sod 3.375 gm/ Sodium Chloride IV 10/11/20 22:59 200 mls/hr ONETIME ONE Administration Ibuprofen 800 mg 10/11/20 16:58 10/11/20 17:05 Ibuprofen 800 Mg Tab PO 10/11/20 16:59 800 mg ONETIME ONE Administration Iopamidol 100 ml 10/11/20 18:15 10/11/20 19:12 Iopamidol 755 Mg/Ml 100 Ml Bottle IVPUSH 10/11/20 18:16 70 ml ONETIME ONE Administration Morphine Sulfate 2 mg 10/11/20 17:29 10/11/20 18:23 Morphine 2 Mg/Ml Syringe IVPUSH 10/11/20 17:30 2 mg ONETIME ONE Administration Departure - Departure Time of Disposition: 20:04 Condition: Fair - Discharge Information *PRESCRIPTION DRUG MONITORING PROGRAM REVIEWED*: No *COPY OF PRESCRIPTION DRUG MONITORING REPORT IN PATIENT PADMINI: No Sepsis Event Note (ED) - Focused Exam Vital Signs: Vital Signs Temp Temp Pulse Resp BP Pulse Ox 10/11/20 18:05 98.4 F 10/11/20 17:05 101.4 F H 10/11/20 16:37 101.4 F H 110 H 20 140/44 L 97
[2020-10-11] MEDS ORDERED: Levofloxacin/Dextrose 5%-Water 500 MG in Premix Bag 1 BAG IV ONE (17:27)
[2020-10-11] MEDS ORDERED: Morphine 2 MG/ML SYRINGE IVPUSH ONE (17:29)
[2020-10-11 17:45] LABS: ANION GAP 13.9 mEq/L (7-13); CHLORIDE,CL 93 mmol/L (98-107); SODIUM,NA 127 mmol/L (136-145)
[2020-10-11 18:02] LABS: CORONAVIRUS COVID-19 NAA NEGATIVE (NEGATIVE)
[2020-10-11] MEDS ORDERED: Iopamidol 755 Mg/ML 100 ML Bottle IVPUSH ONE (18:15)
--- NOTE | 2020-10-11 19:25 | CT ---
PROCEDURE INFORMATION: Exam: CT Chest With Contrast; Diagnostic Exam date and time: 10/11/2020 6:26 PM Age: 50 years old Clinical indication: Shortness of breath and other: Short of breath, fever, d-dimer >5000, pe study TECHNIQUE: Imaging protocol: Diagnostic computed tomography of the chest with contrast. Radiation optimization: All CT scans at this facility use at least one of these dose optimization techniques: automated exposure control; mA and/or kV adjustment per patient size (includes targeted exams where dose is matched to clinical indication); or iterative reconstruction. Contrast material: [id number]; Contrast volume: 70 ml; Contrast route: INTRAVENOUS (IV); COMPARISON: CR Chest 1V Frontal 10/11/2020 5:00 PM FINDINGS: Lungs: 4 mm noncalcified nodule right upper lobe. Small tree-in-bud opacity in the posterior segment of the right upper lobe. 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 Pleural spaces: Unremarkable. No pneumothorax. No pleural effusion. Heart: Unremarkable. No cardiomegaly. No pericardial effusion. Aorta: Unremarkable. No aortic aneurysm. Lymph nodes: Lateral AP window lymph node measures 7 mm, not significantly enlarged. Liver: Examination of the liver demonstrates a lobular surface contour, and enlargement of the left and caudate lobes, findings consistent with cirrhosis. Spleen: There is [id number] splenomegaly with a maximum span of 17 centimeters. No focal abnormalities demonstrated. Bones/joints: Unremarkable. No acute fracture. Soft tissues: Unremarkable. IMPRESSION: 1. 4 mm noncalcified nodule right upper lobe. For patients at low risk (minimal or absent history of smoking and of other known risk factors), no routine follow-up is indicated. For patients at high risk (history of smoking or of other known risk factors), consider optional CT Chest at 12 months. (Reference: Danyelle) References: Cristalhoharitha H, et al. Guidelines for Management of Incidental Pulmonary Nodules Detected on CT Images: From the Fleischner Society 2017. Radiology. 2017;284(1):228-243. 2. Small tree-in-bud opacity in the posterior segment of the right upper lobe. 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 3. There is [id number] splenomegaly with a maximum span of 17 centimeters. No focal abnormalities demonstrated. 4. Examination of the liver demonstrates a lobular surface contour, and enlargement of the left and caudate lobes, findings consistent with cirrhosis.
[2020-10-11] MEDS ORDERED: Zolpidem 5 MG Tab PO PRN (20:28)
[2020-10-11] MEDS ORDERED: Acetaminophen 650 MG Supp RECTAL PRN (20:28)
[2020-10-11] MEDS ORDERED: Docusate Sodium 100 MG Cap PO PRN (20:28)
[2020-10-11] MEDS ORDERED: Ondansetron 4 MG/2 ML SDV IVPUSH PRN (20:28)
[2020-10-11] MEDS ORDERED: Enoxaparin 40 MG/0.4 ML Syringe SUBCUT SCH (20:30)
[2020-10-11] MEDS ORDERED: Sodium Chloride 0.9% 1,000 ML IV SCH ×2 (20:45→22:30)
[2020-10-11] MEDS ORDERED: Albuterol/Ipratropium 3.0-0.5 MG/3 ML Neb Soln NEB PRN (22:03)
[2020-10-11] MEDS ORDERED: VANCOmycin 1.5 GM/300 ML 1.5 GM in Premix Bag 1 BAG IV ONE (22:24)
[2020-10-11] MEDS: predniSONE 5 MG Tab PO SCH (22:27)
[2020-10-11] MEDS ORDERED: Hydrocortisone Sodium Succinate 250 MG/2 ML SDV IV SCH (22:30)
[2020-10-11] MEDS ORDERED: Piperacillin/Tazobactam 3.375 GM in Sodium Chloride 0.9% 100 ML IV ONE (22:30)
--- NOTE | 2020-10-11 22:39 | PCM.HP ---
H&P History of Present Illness - General Date of Service: 10/11/20 Admit Problem/Dx: Admission Diagnosis/Problem Admission Diagnosis/Problem Sepsis Patient is a 50 y.o. male who presents to the ED with c/o feeling short of breath, generalized body aches, and fever. The patient states he began feeling short of breath 3 days ago and developed body aches. He states his symptoms have persisted and worsened over the past 3 days and he's had a fever with chills the past two days of 102 Fahrenheit. He took ibuprofen yesterday with no relief. The patient reports he's also had associated headache, rhinorrhea, sore throat, and cough with clear production. The patient also reports he developed sharp pain in his left hand today and noticed sores on the tips of his fingers. He denies dizziness, vision changes, chest pain, abdominal pain, hematuria, dysuria, or hematochezia or melena. Last bowel movement was today. He did not take his daily medications today. He denies any sick contacts. He denies alcohol or illicit drug use. He reported vomiting which he did not report while in ER Source of Information: Patient, RN, Other (ER provider) History Limitations: Reports: Other (pt is poor historian) - History of Present Illness Onset of Symptoms: Reports: Gradual Duration of Symptoms: Reports: Day(s): (3) Location: Reports: Generalized Quality: Reports: Dull Severity: Severe (lession to the hands and fingers . painfull) Context: Denies: Sick Contact (densi exposure to COVID) Associated Symptoms: Reports: Fever/Chills, Headaches, Rash (painful to fingers) Generalized Pain Score (Numeric/FACES): 10 - Related Data Allergies/Adverse Reactions: Allergies Allergy/AdvReac Type Severity Reaction Status Date / Time No Known Allergies Allergy Verified 10/11/20 16:37 Home Medications: Home Meds Aspirin 1 tab PO QAM 01/01/20 [History] Brimonidine/Timolol [Combigan 0.2%/0.5% Ophth Soln] 1 drop EYELF DAILY 01/01/20 [History] Calcium Carbonate/Vitamin D3 [Caltrate 600+D 1500 MG-400 Units] 1 tab PO BID 01/01/20 [History] Folic Acid 1 mg PO DAILY 01/01/20 [History] Furosemide 80 mg PO DAILY 01/01/20 [History] Insulin Aspart [NovoLOG] 12 unit INJECT TID 01/01/20 [History] Insulin Detemir [Levemir Flextouch] 42 unit INJECT QAM 01/01/20 [History] Latanoprost 1 drop EYEBOTH DAILY 01/01/20 [History] Pen Needle, Diabetic [Ulticare Pen Needle] 1 each INJECT ASDIRECTED 01/01/20 [History] Potassium Chloride [K-Tab ER] 20 meq PO DAILY 01/01/20 [History] metHOTREXate sodium [Methotrexate] 10 tab PO WEEKLY 01/01/20 [History] predniSONE [Prednisone] 1 tab PO DAILY 01/01/20 [History] Albuterol/Ipratropium [DuoNeb 3.0-0.5 MG/3 ML] 3 ml NEB Q6H PRN 10/11/20 [History] Non-Formulary Medication [NF Drug] 1 applic TOP BID 10/11/20 [History] Sertraline [Zoloft] 100 mg PO DAILY 10/11/20 [History] Sildenafil Citrate [Viagra] 50 mg PO ASDIRECTED PRN 10/11/20 [History] Past Medical History HEENT History: Reports: Cataract, Glaucoma, Impaired Vision Cardiovascular History: Reports: Heart Failure Respiratory History: Reports: Asthma, SOB Musculoskeletal History: Reports: RA Endocrine/Metabolic History: Reports: Diabetes, Type II Hematologic History: Reports: Folic Acid Social & Family History - Family History Family Medical History: No Pertinent Family History - Tobacco Use Tobacco Use Status *Q: Current Every Day Tobacco User Years of Tobacco use: 40 Packs/Tins Daily: 1 - Caffeine Use Caffeine Use: Reports: None - Recreational Drug Use Recreational Drug Use: No H&P Review of Systems - Review of Systems: Review Of Systems: See Below General: Reports: Fever, Chills, Malaise, Weakness HEENT: Reports: Headaches Pulmonary: Reports: Shortness of Breath Gastrointestinal: Reports: Nausea, Vomiting. Denies: Abdominal Pain Genitourinary: Denies: Dysuria Musculoskeletal: Denies: Neck Pain Skin: Reports: Other (new skin lessions) Psychiatric: Denies: Confusion Neurological: Denies: Confusion Hematologic/Lymphatic: Denies: Anemia Immunologic: Denies: Anaphylaxis Exam - Exam Exam: See Below - Vital Signs Vital Signs: Last Vital Signs Temp 96.3 F L 10/11/20 20:29 Pulse 82 10/11/20 20:29 Resp 16 10/11/20 20:29 BP 97/45 L 10/11/20 20:29 Pulse Ox 99 10/11/20 20:30 Weight: 192 lb 6.4 oz - Exam Quality Assessment: Supplemental Oxygen General: Alert, Oriented. No: Mild Distress HEENT: Conjunctiva Clear Lungs: Clear to Auscultation Cardiovascular: Regular Rate, Regular Rhythm GI/Abdominal Exam: Soft, Non-Tender Back Exam: Normal Inspection Extremities: Normal Inspection Skin: Intact, Other (has purpuric painfull rash to to the tip foe fingers and hands ) Neurological: Cranial Nerves Intact Neuro Extensive - Mental Status: Alert, Oriented x3 Psychiatric: Alert - Patient Data Lab Results Last 24 hrs: Laboratory Results - last 24 hr 10/11/20 10/11/20 10/11/20 Range/Units 17:04 17:04 17:04 WBC 21.1 H (5.0-10.0) 10^3/uL RBC 4.15 L (4.6-6.2) 10^6/uL Hgb 14.4 (14.0-18.0) g/dL Hct 41.0 (40.0-54.0) % MCV 98.8 D (80-100) fL MCH 34.7 H (27.0-34.0) pg MCHC 35.1 H (33.0-35.0) g/dL Plt Count 129 L (150-450) 10^3/uL Neut % (Auto) 94.6 H (42.2-75.2) % Lymph % (Auto) 1.9 L (20.5-50.1) % [place] % (Auto) 3.4 (2-8) % Eos % (Auto) 0.0 L (1.0-3.0) % Baso % (Auto) 0.1 (0.0-1.0) % Add Manual Diff Yes Neutrophils % (Manual) 63 (42-75) % Band Neutrophils % 32 % Lymphocytes % (Manual) 1 L (20-50) % Monocytes % (Manual) 4 (2-8) % Vacuolated Monocytes 1+ slight Toxic Granulation Few Platelet Estimate Decreased PT (9.0-12.0) SEC INR (0.9-1.2) D-Dimer, Quantitative > 5000 H (0-400) ng/mL Sodium 127 L D (136-145) mmol/L Potassium 3.9 (3.5-5.1) mmol/L Chloride 93 L (98-107) mmol/L Carbon Dioxide 24 (21-32) mmol/L Anion Gap 13.9 H (7-13) mEq/L BUN 18 (7-18) mg/dL Creatinine 1.30 (0.70-1.30) mg/dL Est Cr Clr Drug Dosing 57.82 mL/min Estimated GFR (MDRD) 58 BUN/Creatinine Ratio 13.8 (No establ ref range) Glucose 162 H (74-99) mg/dL Lactic Acid (0.4-2.0) mmol/L Calcium 8.1 L (8.5-10.1) mg/dL Total Bilirubin 0.8 (0.2-1.0) mg/dL AST 61 H (15-37) U/L ALT 46 (16-63) U/L Alkaline Phosphatase 56 (46-116) U/L C-Reactive Protein > 36.0 H (0.0-0.9) mg/dL Total Protein 6.9 (6.4-8.2) g/dL Albumin 2.6 L (3.4-5.0) g/dL Globulin 4.3 Albumin/Globulin Ratio 0.60 Amylase 37 (25-115) U/L Lipase 44 L (73-393) U/L Urine Color (YELLOW) Urine Appearance (CLEAR) Urine pH (5.0-9.0) Ur Specific [place] (1.005-1.030) Urine Protein (NEGATIVE) Urine Glucose (UA) (NEGATIVE) Urine Ketones (NEGATIVE) Urine Occult Blood (NEGATIVE) Urine Nitrite (NEGATIVE) Urine Bilirubin (NEGATIVE) Urine Urobilinogen (0.2-1.0) mg/dL Ur Leukocyte Esterase (NEGATIVE) Urine RBC /HPF Urine WBC (0-5/HPF) /HPF Ur Epithelial Cells (NOT SEEN) /HPF Urine Bacteria (0-FEW/HPF) /HPF Urine Opiates Screen (NEGATIVE) Ur Oxycodone Screen (NEGATIVE) Urine Methadone Screen (NEGATIVE) Ur Barbiturates Screen (NEGATIVE) U Tricyclic Antidepress (NEGATIVE) Ur Phencyclidine Scrn (NEGATIVE) Ur Amphetamine Screen (NEGATIVE) U Methamphetamines Scrn (NEGATIVE) Urine MDMA Screen (NEGATIVE) U Benzodiazepines Scrn (NEGATIVE) Urine Cocaine Screen (NEGATIVE) U Marijuana (THC) Screen (NEGATIVE) Ethyl Alcohol (0) mg/dL Influenza Type A RNA (NEGATIVE) Influenza Type B RNA (NEGATIVE) SARS-CoV-2 RNA (CAROL) (NEGATIVE) 10/11/20 10/11/20 10/11/20 Range/Units 17:04 17:04 17:04 WBC (5.0-10.0) 10^3/uL RBC (4.6-6.2) 10^6/uL Hgb (14.0-18.0) g/dL Hct (40.0-54.0) % MCV (80-100) fL MCH (27.0-34.0) pg MCHC (33.0-35.0) g/dL Plt Count (150-450) 10^3/uL Neut % (Auto) (42.2-75.2) % Lymph % (Auto) (20.5-50.1) % [place] % (Auto) (2-8) % Eos % (Auto) (1.0-3.0) % Baso % (Auto) (0.0-1.0) % Add Manual Diff Neutrophils % (Manual) (42-75) % Band Neutrophils % % Lymphocytes % (Manual) (20-50) % Monocytes % (Manual) (2-8) % Vacuolated Monocytes Toxic Granulation Platelet Estimate PT 12.5 H (9.0-12.0) SEC INR 1.3 H (0.9-1.2) D-Dimer, Quantitative (0-400) ng/mL Sodium (136-145) mmol/L Potassium (3.5-5.1) mmol/L Chloride (98-107) mmol/L Carbon Dioxide (21-32) mmol/L Anion Gap (7-13) mEq/L BUN (7-18) mg/dL Creatinine (0.70-1.30) mg/dL Est Cr Clr Drug Dosing mL/min Estimated GFR (MDRD) BUN/Creatinine Ratio (No establ ref range) Glucose (74-99) mg/dL Lactic Acid 1.6 (0.4-2.0) mmol/L Calcium (8.5-10.1) mg/dL Total Bilirubin (0.2-1.0) mg/dL AST (15-37) U/L ALT (16-63) U/L Alkaline Phosphatase (46-116) U/L C-Reactive Protein (0.0-0.9) mg/dL Total Protein (6.4-8.2) g/dL Albumin (3.4-5.0) g/dL Globulin Albumin/Globulin Ratio Amylase (25-115) U/L Lipase (73-393) U/L Urine Color (YELLOW) Urine Appearance (CLEAR) Urine pH (5.0-9.0) Ur Specific [place]vid (1.005-1.030) Urine Protein (NEGATIVE) Urine Glucose (UA) (NEGATIVE) Urine Ketones (NEGATIVE) Urine Occult Blood (NEGATIVE) Urine Nitrite (NEGATIVE) Urine Bilirubin (NEGATIVE) Urine Urobilinogen (0.2-1.0) mg/dL Ur Leukocyte Esterase (NEGATIVE) Urine RBC /HPF Urine WBC (0-5/HPF) /HPF Ur Epithelial Cells (NOT SEEN) /HPF Urine Bacteria (0-FEW/HPF) /HPF Urine Opiates Screen (NEGATIVE) Ur Oxycodone Screen (NEGATIVE) Urine Methadone Screen (NEGATIVE) Ur Barbiturates Screen (NEGATIVE) U Tricyclic Antidepress (NEGATIVE) Ur Phencyclidine Scrn (NEGATIVE) Ur Amphetamine Screen (NEGATIVE) U Methamphetamines Scrn (NEGATIVE) Urine MDMA Screen (NEGATIVE) U Benzodiazepines Scrn (NEGATIVE) Urine Cocaine Screen (NEGATIVE) U Marijuana (THC) Screen (NEGATIVE) Ethyl Alcohol < 3 (0) mg/dL Influenza Type A RNA (NEGATIVE) Influenza Type B RNA (NEGATIVE) SARS-CoV-2 RNA (CAROL) (NEGATIVE) 10/11/20 10/11/20 10/11/20 Range/Units 17:10 17:31 19:26 WBC (5.0-10.0) 10^3/uL RBC (4.6-6.2) 10^6/uL Hgb (14.0-18.0) g/dL Hct (40.0-54.0) % MCV (80-100) fL MCH (27.0-34.0) pg MCHC (33.0-35.0) g/dL Plt Count (150-450) 10^3/uL Neut % (Auto) (42.2-75.2) % Lymph % (Auto) (20.5-50.1) % [place] % (Auto) (2-8) % Eos % (Auto) (1.0-3.0) % Baso % (Auto) (0.0-1.0) % Add Manual Diff Neutrophils % (Manual) (42-75) % Band Neutrophils % % Lymphocytes % (Manual) (20-50) % Monocytes % (Manual) (2-8) % Vacuolated Monocytes Toxic Granulation Platelet Estimate PT (9.0-12.0) SEC INR (0.9-1.2) D-Dimer, Quantitative (0-400) ng/mL Sodium (136-145) mmol/L Potassium (3.5-5.1) mmol/L Chloride (98-107) mmol/L Carbon Dioxide (21-32) mmol/L Anion Gap (7-13) mEq/L BUN (7-18) mg/dL Creatinine (0.70-1.30) mg/dL Est Cr Clr Drug Dosing mL/min Estimated GFR (MDRD) BUN/Creatinine Ratio (No establ ref range) Glucose (74-99) mg/dL Lactic Acid (0.4-2.0) mmol/L Calcium (8.5-10.1) mg/dL Total Bilirubin (0.2-1.0) mg/dL AST (15-37) U/L ALT (16-63) U/L Alkaline Phosphatase (46-116) U/L C-Reactive Protein (0.0-0.9) mg/dL Total Protein (6.4-8.2) g/dL Albumin (3.4-5.0) g/dL Globulin Albumin/Globulin Ratio Amylase (25-115) U/L Lipase (73-393) U/L Urine Color Yellow (YELLOW) Urine Appearance Clear (CLEAR) Urine pH 6.0 (5.0-9.0) Ur Specific [place] 1.020 (1.005-1.030) Urine Protein 100 H (NEGATIVE) Urine Glucose (UA) Negative (NEGATIVE) Urine Ketones Trace H (NEGATIVE) Urine Occult Blood Moderate H (NEGATIVE) Urine Nitrite Negative (NEGATIVE) Urine Bilirubin Negative (NEGATIVE) Urine Urobilinogen 0.2 (0.2-1.0) mg/dL Ur Leukocyte Esterase Negative (NEGATIVE) Urine RBC 5-10 H /HPF Urine WBC 0-5 (0-5/HPF) /HPF Ur Epithelial Cells Few (NOT SEEN) /HPF Urine Bacteria Few (0-FEW/HPF) /HPF Urine Opiates Screen Positive H (NEGATIVE) Ur Oxycodone Screen Negative (NEGATIVE) Urine Methadone Screen Negative (NEGATIVE) Ur Barbiturates Screen Negative (NEGATIVE) U Tricyclic Antidepress Negative (NEGATIVE) Ur Phencyclidine Scrn Negative (NEGATIVE) Ur Amphetamine Screen Negative (NEGATIVE) U Methamphetamines Scrn Negative (NEGATIVE) Urine MDMA Screen Negative (NEGATIVE) U Benzodiazepines Scrn Negative (NEGATIVE) Urine Cocaine Screen Negative (NEGATIVE) U Marijuana (THC) Screen Negative (NEGATIVE) Ethyl Alcohol (0) mg/dL Influenza Type A RNA Negative (NEGATIVE) Influenza Type B RNA Negative (NEGATIVE) SARS-CoV-2 RNA (CAROL) Negative (NEGATIVE) Result Diagrams: 10/11/20 17:04 10/11/20 17:04 Oswaldo Results Last 24 hrs: Microbiology 10/11/20 17:10 Group A Streptococcus Rapid Screen - Final Throat NEGATIVE STREP A SCREEN REFERENCE RANGE: NEGATIVE Problem List Initiated/Reviewed/Updated: Yes Orders Last 24hrs: Active Orders 24 hr Category Date Time Status Admission Diagnosis [ADT] Stat ADT 10/11/20 20:06 Ordered Admission Status [Patient Status] [ADT] Routine ADT 10/11/20 20:06 Active Blood Glucose Check, Bedside [RC] WITHMEALSANDBED Care 10/11/20 20:28 Active Height and Weight [RC] DAILY Care 10/11/20 20:28 Active Intake and Output [RC] QSHIFT Care 10/11/20 20:30 Active Oxygen Therapy [RC] PRN Care 10/11/20 20:29 Active Peripheral IV Care [RC] . DIRECTED Care 10/11/20 16:50 Active Peripheral IV Care [RC] . DIRECTED Care 10/11/20 17:28 Active Pulse Oximetry [RC] CONTINUOUS Care 10/11/20 20:30 Active RT Aerosol Therapy [RC] ASDIRECTED Care 10/11/20 22:06 Ordered Up ad Sammie [RC] ASDIRECTED Care 10/11/20 20:28 Active VTE/DVT Education [RC] PER UNIT ROUTINE Care 10/11/20 20:29 Active Vital Signs [RC] Q4H Care 10/11/20 20:29 Active Consistent Carbohydrate Diet [DIET] Diet 10/12/20 Breakfast Active Echo Comp wo Cont [US] Urgent Exams 10/11/20 22:22 Ordered BASIC METABOLIC PANEL,BMP [CHEM] AM Lab 10/12/20 05:11 Ordered BASIC METABOLIC PANEL,BMP [CHEM] AM Lab 10/13/20 05:11 Ordered BASIC METABOLIC PANEL,BMP [CHEM] AM Lab 10/14/20 05:11 Ordered BASIC METABOLIC PANEL,BMP [CHEM] AM Lab 10/15/20 05:11 Ordered BASIC METABOLIC PANEL,BMP [CHEM] AM Lab 10/16/20 05:11 Ordered BASIC METABOLIC PANEL,BMP [CHEM] AM Lab 10/17/20 05:11 Ordered BASIC METABOLIC PANEL,BMP [CHEM] AM Lab 10/18/20 05:11 Ordered CBC WITH AUTO DIFF [HEME] AM Lab 10/12/20 05:11 Ordered CBC WITH AUTO DIFF [HEME] AM Lab 10/13/20 05:11 Ordered CBC WITH AUTO DIFF [HEME] AM Lab 10/14/20 05:11 Ordered CBC WITH AUTO DIFF [HEME] AM Lab 10/15/20 05:11 Ordered CBC WITH AUTO DIFF [HEME] AM Lab 10/16/20 05:11 Ordered CBC WITH AUTO DIFF [HEME] AM Lab 10/17/20 05:11 Ordered CBC WITH AUTO DIFF [HEME] AM Lab 10/18/20 05:11 Ordered CRP [C-REACTIVE PROTEIN] [CHEM] Routine Lab 10/12/20 05:45 Ordered CULTURE BLOOD [BC] Stat Lab 10/11/20 17:04 Received CULTURE BLOOD [BC] Stat Lab 10/11/20 17:09 Received CULTURE STREP A CONFIRMATION [RM] Stat Lab 10/11/20 17:10 Results CULTURE URINE [RM] Stat Lab 10/11/20 20:28 Ordered D Dimer [D-DIMER QUANTITATIVE] [COAG] Routine Lab 10/12/20 05:00 Ordered LACTIC ACID [CHEM] Routine Lab 10/12/20 05:00 Ordered STREP SCRN A RAPID W CULT CONF [RM] Stat Lab 10/11/20 17:10 Results Acetaminophen [Tylenol] Med 10/11/20 20:28 Active 650 mg RECTAL Q4H PRN Albuterol/Ipratropium [DuoNeb 3.0-0.5 MG/3 ML] Med 10/11/20 22:03 Ordered 3 ml NEB Q6H PRN Aspirin Med 10/12/20 09:00 Ordered 81 mg PO QAM Brimonidine/Timolol [Combigan 0.2%/0.5% [facility] Soln] Med 10/12/20 09:00 Ordered 1 drop EYELF DAILY Docusate Sodium [Colace] Med 10/11/20 20:28 Ordered 100 mg PO BID PRN Enoxaparin [Lovenox] Med 10/11/20 20:30 Ordered 40 mg SUBCUT DAILY Folic Acid Med 10/12/20 09:00 Ordered 1 mg PO DAILY Hydrocortisone Sod Succinate [Solu-CORTEF] Med 10/11/20 22:30 Ordered 75 mg IV Q6H Insulin Aspart [NovoLOG] Med 10/12/20 09:00 Ordered 12 unit INJECT TID Insulin Detemir Med 10/12/20 09:00 Ordered 42 unit INJECT QAM Latanoprost [Xalatan 0.005% [facility]] Med 10/12/20 09:00 Ordered 1 drop EYEBOTH DAILY Ondansetron [Zofran] Med 10/11/20 20:28 Ordered 4 mg IVPUSH Q6H PRN Piperacillin/Tazobactam [Zosyn] 3.375 gm Med 10/11/20 22:30 Ordered Sodium Chloride 0.9% [Normal Saline] 100 ml IV ONETIME Sertraline [Zoloft] Med 10/12/20 09:00 Ordered 100 mg PO DAILY Sodium Chloride 0.9% [Normal Saline] 1,000 ml Med 10/11/20 20:45 Ordered IV ASDIRECTED Sodium Chloride 0.9% [Normal Saline] 1,000 ml Med 10/11/20 22:30 Ordered IV ASDIRECTED Sodium Chloride 0.9% [Saline Flush] Med 10/11/20 16:49 Active 10 ml FLUSH ASDIRECTED PRN Sodium Chloride 0.9% [Saline Flush] Med 10/11/20 17:28 Active 10 ml FLUSH ASDIRECTED PRN VANCOmycin 1.5 GM/300 ML 1.5 gm Med 10/11/20 22:24 Ordered Premix Bag 1 bag IV ONETIME Zolpidem [Ambien] Med 10/11/20 20:28 Ordered 5 mg PO BEDTIME PRN levoFLOXacin [Levaquin] Med 10/11/20 20:45 Ordered 750 mg PO Q24H predniSONE Med 10/11/20 22:15 Ordered 5 mg PO DAILY Blood Culture x2 Reflex Set [OM.PC] Stat Oth 10/11/20 16:49 Ordered Peripheral IV Insertion Adult [OM.PC] Stat Oth 10/11/20 16:50 Ordered Peripheral IV Insertion Adult [OM.PC] Stat Ot 10/11/20 17:28 Ordered Resuscitation Status Routine Resus Stat 10/11/20 20:28 Ordered Medication Orders Acetaminophen (Acetaminophen 650 Mg Supp) 650 mg RECTAL Q4H PRN PRN Reason: Pain (mild 1-3) Albuterol/Ipratropium (Albuterol/Ipratropium 3.0-0.5 Mg/3 Ml Neb Soln) 3 ml NEB Q6H PRN PRN Reason: Shortness of Breath Aspirin (Aspirin 81 Mg Tab.Chew) 81 mg PO QAM [facility] Docusate Sodium (Docusate Sodium 100 Mg Cap) 100 mg PO BID PRN PRN Reason: Constipation Enoxaparin Sodium (Enoxaparin 40 Mg/0.4 Ml Syringe) 40 mg SUBCUT Q24H IVELISSE Last Admin: 10/11/20 22:27 Dose: 40 mg Documented by: KANDI Folic Acid (Folic Acid 1 Mg Tab) 1 mg PO DAILY [facility] Hydrocortisone Sodium Succinate (Hydrocortisone Sodium Succinate 250 Mg/2 Ml Sdv) 75 mg IV Q6H [facility] Sodium Chloride (Normal Saline) 1,000 mls @ 125 mls/hr IV ASDIRECTED IVELISSE Vancomycin HCl 1.5 gm/ Premix 300 mls @ 200 mls/hr IV ONETIME ONE Stop: 10/11/20 23:53 Sodium Chloride (Normal Saline) 1,000 mls @ 500 mls/hr IV ASDIRECTED IVELISSE Piperacillin Sod/Tazobactam (Sod 3.375 gm/ Sodium Chloride) 100 mls @ 200 mls/hr IV ONETIME ONE Stop: 10/11/20 22:59 Insulin Glargine (Insulin Glarg,Human.Rec.Analog 100 Unit/Ml) 42 unit SUBCUT QAM [facility] Insulin Human Lispro (Insulin Lispro 100 Units/Ml 3 Ml Vial) 12 unit SUBCUT TID [facility] Latanoprost (Latanoprost 0.005% Ophth Soln 2.5 Ml Bottle) 0 ml EYEBOTH DAILY [facility] Levofloxacin (Levofloxacin 500 Mg Tab) 750 mg PO Q24H IVELIS[facility] Non-Formulary Medication (Brimonidine/Timolol [Combigan 0.2%/0.5% Ophth Soln]) 1 drop EYELF DAILY [facility] Ondansetron HCl (Ondansetron 4 Mg/2 Ml Sdv) 4 mg IVPUSH Q6H PRN PRN Reason: Nausea/Vomiting Prednisone (Prednisone 5 Mg Tab) 5 mg PO DAILY [facility] Last Admin: 10/11/20 22:27 Dose: 5 mg Documented by: KANDI Sertraline HCl (Sertraline 50 Mg Tab) 100 mg PO DAILY [facility] Sodium Chloride (Sodium Chloride 0.9% 10 Ml Syringe) 10 ml FLUSH ASDIRECTED PRN PRN Reason: Keep Vein Open Last Admin: 10/11/20 16:55 Dose: 10 ml Documented by: [id number] Sodium Chloride (Sodium Chloride 0.9% 10 Ml Syringe) 10 ml FLUSH ASDIRECTED PRN PRN Reason: Keep Vein Open Last Admin: 10/11/20 18:24 Dose: 10 ml Documented by: [id number] Zolpidem Tartrate (Zolpidem 5 Mg Tab) 5 mg PO BEDTIME PRN PRN Reason: Sleep Assessment/Plan Comment:: acute febrile illness: etiology unclear high DDimer new purpuric and painful lessions to hand ? Bronchitis severe sepsis Chronic immunosupression due to RA ( on MTX and pred) add Vanco X 1 and ZosynX1 to levaquin and re assess in AM IVF bolus Cortisone IV Echo RA HOLD mtx DM: continue with insulin CRITICAL CARE TIME : 30 min
[2020-10-12] MEDS: Hydrocortisone Sodium Succinate 100 MG/2 ML SDV IV SCH ×2 (04:34→11:22)
[2020-10-12 07:00] LABS: ANION GAP 16.8 mEq/L (7-13); CHLORIDE,CL 104 mmol/L (98-107); SODIUM,NA 137 mmol/L (136-145)
[2020-10-12] MEDS ORDERED: Latanoprost 0.005% Ophth Soln 2.5 ML Bottle EYEBOTH SCH (09:00)
[2020-10-12] MEDS ORDERED: Folic Acid 1 MG Tab PO SCH (09:00)
[2020-10-12] MEDS ORDERED: Insulin Glarg,Human.Rec.Analog 100 Unit/ML SUBCUT SCH (09:00)
[2020-10-12] MEDS ORDERED: Aspirin 81 MG Tab.Chew PO SCH (09:00)
[2020-10-12] MEDS ORDERED: Sertraline 50 MG Tab PO SCH (09:00)
[2020-10-12] MEDS ORDERED: Insulin Lispro 100 Units/ML 3 ML Vial SUBCUT SCH ×2 (09:00→09:20)
[2020-10-12] MEDS ORDERED: 50% Dextrose in Water 50 ML Syringe IV PRN (09:20)
[2020-10-12] MEDS ORDERED: Glucagon,Human Recombinant 1 MG Vial IM PRN (09:20)
[2020-10-12] MEDS: predniSONE 5 MG Tab PO SCH (09:39)
--- NOTE | 2020-10-12 11:05 | PCM.DCSUM1 ---
Discharge Summary - Hospital Course Free Text/Narrative:: Patient is a 50 y.o. male who presents to the ED with c/o feeling short of breath, generalized body aches, and fever. The patient states he began feeling short of breath 3 days ago and developed body aches. He states his symptoms have persisted and worsened over the past 3 days and he's had a fever with chills the past two days of 102 Fahrenheit. He took ibuprofen yesterday with no relief. The patient reports he's also had associated headache, rhinorrhea, sore throat, and cough with clear production. The patient also reports he developed sharp pain in his left hand today and noticed sores on the tips of his fingers. He denies dizziness, vision changes, chest pain, abdominal pain, hematuria, dysuria, or hematochezia or melena. Last bowel movement was today. He did not take his daily medications today. He denies any sick contacts. He denies alcohol or illicit drug use. He had negative COVID test at his PCP office and repeat was negative too in ER. In ER , pt started on IVF and found with CRP of 36, WBC 19.000 , elevated D Dimer. CT chest: no PE but ? bronchitis. during his stay overnight BP was running between 75-90. Pt received about 3 L of IVF his BP has improved to ~110. B. cult X 2showed gram positive in clustors Pt reported that he had tooth abscess about 2 weeks ago which required oral antibiotics. Pt reports that he was hospitalized few years ago for " staph infection due to infected cyst to lower back" Severe sepsis: gram positive bacteremia high D Dimer: likely due to above new purpuric and painful lesions to hand: suspicious for septic emboli . less likey vasculitis. Chronic immunosuppression due to RA ( on MTX and pred): Cortisone IV. RA HOLD mtx for now add Vanco X 1 and ZosynX1 to levaquin IVF : hold due to h/o CHF DM: continue with insulin. Detailed discussion with pt and his . It is better to transfer pt to high level of care to be able to see ID, Rheumatolgy and dentist. Pt also may need ADRIA due to possibility of septic emboli. D/W Dr. Hemphill from [facility]: and he accepted the transfer. ' - Discharge Data Discharge Date: 10/12/20 Discharge Disposition: DC/Tfer to Other 70 Condition: Fair - Referral to Home Health Date of Face to Face Encounter: 10/12/20 Primary Care Physician: PCP None - Discharge Plan *PRESCRIPTION DRUG MONITORING PROGRAM REVIEWED*: Not Applicable *COPY OF PRESCRIPTION DRUG MONITORING REPORT IN PATIENT PADMINI: Not Applicable Home Medications: Home Meds Brimonidine/Timolol [Combigan 0.2%/0.5% Ophth Soln] 1 drop EYELF DAILY 01/01/20 [History] Calcium Carbonate/Vitamin D3 [Caltrate 600+D 1500 MG-400 Units] 1 tab PO BID 01/01/20 [History] Folic Acid 1 mg PO DAILY 01/01/20 [History] Furosemide 80 mg PO DAILY 01/01/20 [History] Insulin Detemir [Levemir Flextouch] 42 unit INJECT QAM 01/01/20 [History] Latanoprost 1 drop EYEBOTH DAILY 01/01/20 [History] Pen Needle, Diabetic [Ulticare Pen Needle] 1 each INJECT ASDIRECTED 01/01/20 [History] Potassium Chloride [K-Tab ER] 20 meq PO DAILY 01/01/20 [History] metHOTREXate sodium [Methotrexate] 10 tab PO WEEKLY 01/01/20 [History] predniSONE [Prednisone] 5 mg PO DAILY 01/01/20 [History] Albuterol/Ipratropium [DuoNeb 3.0-0.5 MG/3 ML] 3 ml NEB Q6H PRN 10/11/20 [History] Non-Formulary Medication [NF Drug] 1 applic TOP BID 10/11/20 [History] Sertraline [Zoloft] 100 mg PO DAILY 10/11/20 [History] Acetaminophen [Tylenol] 650 mg RECTAL Q4H PRN supp 10/12/20 [Rx] Aspirin 81 mg PO QAM tab.chew 10/12/20 [Rx] Aspirin [Halfprin] 81 mg PO DAILY 10/12/20 [History] Dextrose 50% in Water [Dextrose 50%-Water] 50 ml IV Q15M PRN syringe 10/12/20 [Rx] Enoxaparin [Lovenox] 40 mg SUBCUT Q24H syringe 10/12/20 [Rx] Hydrocortisone Sod Succinate [Solu-CORTEF] 75 mg IV Q6H sdv 10/12/20 [Rx] Insulin Lispro [HumaLOG] 0 unit SUBCUT WITHMEALSANDBED vial 10/12/20 [Rx] Oxygen Therapy Mode: Nasal Cannula Oxygen Flow Rate (L/min): 2 Forms: ED Department Discharge Referrals: PCP,None [Primary Care Provider] - - Discharge Summary/Plan Comment DC Time >30 min.: Yes (exam, planning, meeting with family, transfer and DC summary) - Patient Data Vitals - Most Recent: Last Vital Signs Temp 98.4 F 10/12/20 07:53 Pulse 87 10/12/20 07:53 Resp 20 10/12/20 07:53 BP 92/40 L 10/12/20 07:53 Pulse Ox 97 10/12/20 07:53 Weight - Most Recent: 193 lb I&O - Last 24 hours: Intake & Output 10/11/20 10/12/20 10/12/20 22:59 06:59 14:59 Intake Total 1200 1500 Output Total 200 800 Balance 1000 700 Lab Results - Last 24 hrs: Laboratory Results - last 24 hr 10/11/20 10/11/20 10/11/20 Range/Units 17:04 17:04 17:04 WBC 21.1 H (5.0-10.0) 10^3/uL RBC 4.15 L (4.6-6.2) 10^6/uL Hgb 14.4 (14.0-18.0) g/dL Hct 41.0 (40.0-54.0) % MCV 98.8 D (80-100) fL MCH 34.7 H (27.0-34.0) pg MCHC 35.1 H (33.0-35.0) g/dL Plt Count 129 L (150-450) 10^3/uL Neut % (Auto) 94.6 H (42.2-75.2) % Lymph % (Auto) 1.9 L (20.5-50.1) % Rains % (Auto) 3.4 (2-8) % Eos % (Auto) 0.0 L (1.0-3.0) % Baso % (Auto) 0.1 (0.0-1.0) % Add Manual Diff Yes Neutrophils % (Manual) 63 (42-75) % Band Neutrophils % 32 % Lymphocytes % (Manual) 1 L (20-50) % Monocytes % (Manual) 4 (2-8) % Vacuolated Monocytes 1+ slight Toxic Granulation Few Platelet Estimate Decreased PT (9.0-12.0) SEC INR (0.9-1.2) D-Dimer, Quantitative > 5000 H (0-400) ng/mL Sodium 127 L D (136-145) mmol/L Potassium 3.9 (3.5-5.1) mmol/L Chloride 93 L (98-107) mmol/L Carbon Dioxide 24 (21-32) mmol/L Anion Gap 13.9 H (7-13) mEq/L BUN 18 (7-18) mg/dL Creatinine 1.30 (0.70-1.30) mg/dL Est Cr Clr Drug Dosing 57.82 mL/min Estimated GFR (MDRD) 58 BUN/Creatinine Ratio 13.8 (No establ ref range) Glucose 162 H (74-99) mg/dL POC Glucose (70-105) mg/dl Lactic Acid (0.4-2.0) mmol/L Calcium 8.1 L (8.5-10.1) mg/dL Total Bilirubin 0.8 (0.2-1.0) mg/dL AST 61 H (15-37) U/L ALT 46 (16-63) U/L Alkaline Phosphatase 56 (46-116) U/L C-Reactive Protein > 36.0 H (0.0-0.9) mg/dL Total Protein 6.9 (6.4-8.2) g/dL Albumin 2.6 L (3.4-5.0) g/dL Globulin 4.3 Albumin/Globulin Ratio 0.60 Amylase 37 (25-115) U/L Lipase 44 L (73-393) U/L Urine Color (YELLOW) Urine Appearance (CLEAR) Urine pH (5.0-9.0) Ur Specific Ribera (1.005-1.030) Urine Protein (NEGATIVE) Urine Glucose (UA) (NEGATIVE) Urine Ketones (NEGATIVE) Urine Occult Blood (NEGATIVE) Urine Nitrite (NEGATIVE) Urine Bilirubin (NEGATIVE) Urine Urobilinogen (0.2-1.0) mg/dL Ur Leukocyte Esterase (NEGATIVE) Urine RBC /HPF Urine WBC (0-5/HPF) /HPF Ur Epithelial Cells (NOT SEEN) /HPF Urine Bacteria (0-FEW/HPF) /HPF Urine Opiates Screen (NEGATIVE) Ur Oxycodone Screen (NEGATIVE) Urine Methadone Screen (NEGATIVE) Ur Barbiturates Screen (NEGATIVE) U Tricyclic Antidepress (NEGATIVE) Ur Phencyclidine Scrn (NEGATIVE) Ur Amphetamine Screen (NEGATIVE) U Methamphetamines Scrn (NEGATIVE) Urine MDMA Screen (NEGATIVE) U Benzodiazepines Scrn (NEGATIVE) Urine Cocaine Screen (NEGATIVE) U Marijuana (THC) Screen (NEGATIVE) Ethyl Alcohol (0) mg/dL Influenza Type A RNA (NEGATIVE) Influenza Type B RNA (NEGATIVE) SARS-CoV-2 RNA (CAROL) (NEGATIVE) 10/11/20 10/11/20 10/11/20 Range/Units 17:04 17:04 17:04 WBC (5.0-10.0) 10^3/uL RBC (4.6-6.2) 10^6/uL Hgb (14.0-18.0) g/dL Hct (40.0-54.0) % MCV (80-100) fL MCH (27.0-34.0) pg MCHC (33.0-35.0) g/dL Plt Count (150-450) 10^3/uL Neut % (Auto) (42.2-75.2) % Lymph % (Auto) (20.5-50.1) % Rains % (Auto) (2-8) % Eos % (Auto) (1.0-3.0) % Baso % (Auto) (0.0-1.0) % Add Manual Diff Neutrophils % (Manual) (42-75) % Band Neutrophils % % Lymphocytes % (Manual) (20-50) % Monocytes % (Manual) (2-8) % Vacuolated Monocytes Toxic Granulation Platelet Estimate PT 12.5 H (9.0-12.0) SEC INR 1.3 H (0.9-1.2) D-Dimer, Quantitative (0-400) ng/mL Sodium (136-145) mmol/L Potassium (3.5-5.1) mmol/L Chloride (98-107) mmol/L Carbon Dioxide (21-32) mmol/L Anion Gap (7-13) mEq/L BUN (7-18) mg/dL Creatinine (0.70-1.30) mg/dL Est Cr Clr Drug Dosing mL/min Estimated GFR (MDRD) BUN/Creatinine Ratio (No establ ref range) Glucose (74-99) mg/dL POC Glucose (70-105) mg/dl Lactic Acid 1.6 (0.4-2.0) mmol/L Calcium (8.5-10.1) mg/dL Total Bilirubin (0.2-1.0) mg/dL AST (15-37) U/L ALT (16-63) U/L Alkaline Phosphatase (46-116) U/L C-Reactive Protein (0.0-0.9) mg/dL Total Protein (6.4-8.2) g/dL Albumin (3.4-5.0) g/dL Globulin Albumin/Globulin Ratio Amylase (25-115) U/L Lipase (73-393) U/L Urine Color (YELLOW) Urine Appearance (CLEAR) Urine pH (5.0-9.0) Ur Specific Ribera (1.005-1.030) Urine Protein (NEGATIVE) Urine Glucose (UA) (NEGATIVE) Urine Ketones (NEGATIVE) Urine Occult Blood (NEGATIVE) Urine Nitrite (NEGATIVE) Urine Bilirubin (NEGATIVE) Urine Urobilinogen (0.2-1.0) mg/dL Ur Leukocyte Esterase (NEGATIVE) Urine RBC /HPF Urine WBC (0-5/HPF) /HPF Ur Epithelial Cells (NOT SEEN) /HPF Urine Bacteria (0-FEW/HPF) /HPF Urine Opiates Screen (NEGATIVE) Ur Oxycodone Screen (NEGATIVE) Urine Methadone Screen (NEGATIVE) Ur Barbiturates Screen (NEGATIVE) U Tricyclic Antidepress (NEGATIVE) Ur Phencyclidine Scrn (NEGATIVE) Ur Amphetamine Screen (NEGATIVE) U Methamphetamines Scrn (NEGATIVE) Urine MDMA Screen (NEGATIVE) U Benzodiazepines Scrn (NEGATIVE) Urine Cocaine Screen (NEGATIVE) U Marijuana (THC) Screen (NEGATIVE) Ethyl Alcohol < 3 (0) mg/dL Influenza Type A RNA (NEGATIVE) Influenza Type B RNA (NEGATIVE) SARS-CoV-2 RNA (CAROL) (NEGATIVE) 10/11/20 10/11/20 10/11/20 Range/Units 17:10 17:31 19:26 WBC (5.0-10.0) 10^3/uL RBC (4.6-6.2) 10^6/uL Hgb (14.0-18.0) g/dL Hct (40.0-54.0) % MCV (80-100) fL MCH (27.0-34.0) pg MCHC (33.0-35.0) g/dL Plt Count (150-450) 10^3/uL Neut % (Auto) (42.2-75.2) % Lymph % (Auto) (20.5-50.1) % Rains % (Auto) (2-8) % Eos % (Auto) (1.0-3.0) % Baso % (Auto) (0.0-1.0) % Add Manual Diff Neutrophils % (Manual) (42-75) % Band Neutrophils % % Lymphocytes % (Manual) (20-50) % Monocytes % (Manual) (2-8) % Vacuolated Monocytes Toxic Granulation Platelet Estimate PT (9.0-12.0) SEC INR (0.9-1.2) D-Dimer, Quantitative (0-400) ng/mL Sodium (136-145) mmol/L Potassium (3.5-5.1) mmol/L Chloride (98-107) mmol/L Carbon Dioxide (21-32) mmol/L Anion Gap (7-13) mEq/L BUN (7-18) mg/dL Creatinine (0.70-1.30) mg/dL Est Cr Clr Drug Dosing mL/min Estimated GFR (MDRD) BUN/Creatinine Ratio (No establ ref range) Glucose (74-99) mg/dL POC Glucose (70-105) mg/dl Lactic Acid (0.4-2.0) mmol/L Calcium (8.5-10.1) mg/dL Total Bilirubin (0.2-1.0) mg/dL AST (15-37) U/L ALT (16-63) U/L Alkaline Phosphatase (46-116) U/L C-Reactive Protein (0.0-0.9) mg/dL Total Protein (6.4-8.2) g/dL Albumin (3.4-5.0) g/dL Globulin Albumin/Globulin Ratio Amylase (25-115) U/L Lipase (73-393) U/L Urine Color Yellow (YELLOW) Urine Appearance Clear (CLEAR) Urine pH 6.0 (5.0-9.0) Ur Specific Ribera 1.020 (1.005-1.030) Urine Protein 100 H (NEGATIVE) Urine Glucose (UA) Negative (NEGATIVE) Urine Ketones Trace H (NEGATIVE) Urine Occult Blood Moderate H (NEGATIVE) Urine Nitrite Negative (NEGATIVE) Urine Bilirubin Negative (NEGATIVE) Urine Urobilinogen 0.2 (0.2-1.0) mg/dL Ur Leukocyte Esterase Negative (NEGATIVE) Urine RBC 5-10 H /HPF Urine WBC 0-5 (0-5/HPF) /HPF Ur Epithelial Cells Few (NOT SEEN) /HPF Urine Bacteria Few (0-FEW/HPF) /HPF Urine Opiates Screen Positive H (NEGATIVE) Ur Oxycodone Screen Negative (NEGATIVE) Urine Methadone Screen Negative (NEGATIVE) Ur Barbiturates Screen Negative (NEGATIVE) U Tricyclic Antidepress Negative (NEGATIVE) Ur Phencyclidine Scrn Negative (NEGATIVE) Ur Amphetamine Screen Negative (NEGATIVE) U Methamphetamines Scrn Negative (NEGATIVE) Urine MDMA Screen Negative (NEGATIVE) U Benzodiazepines Scrn Negative (NEGATIVE) Urine Cocaine Screen Negative (NEGATIVE) U Marijuana (THC) Screen Negative (NEGATIVE) Ethyl Alcohol (0) mg/dL Influenza Type A RNA Negative (NEGATIVE) Influenza Type B RNA Negative (NEGATIVE) SARS-CoV-2 RNA (CAROL) Negative (NEGATIVE) 10/11/20 10/12/20 10/12/20 Range/Units 22:25 06:34 06:34 WBC 14.9 H (5.0-10.0) 10^3/uL RBC 3.86 L (4.6-6.2) 10^6/uL Hgb 12.9 L D (14.0-18.0) g/dL Hct 39.3 L (40.0-54.0) % MCV 101.8 H D (80-100) fL MCH 33.4 (27.0-34.0) pg MCHC 32.8 L (33.0-35.0) g/dL Plt Count 90 L (150-450) 10^3/uL Neut % (Auto) 92.3 H (42.2-75.2) % Lymph % (Auto) 2.7 L (20.5-50.1) % Rains % (Auto) 4.9 (2-8) % Eos % (Auto) 0.0 L (1.0-3.0) % Baso % (Auto) 0.1 (0.0-1.0) % Add Manual Diff Neutrophils % (Manual) (42-75) % Band Neutrophils % % Lymphocytes % (Manual) (20-50) % Monocytes % (Manual) (2-8) % Vacuolated Monocytes Toxic Granulation Platelet Estimate PT (9.0-12.0) SEC INR (0.9-1.2) D-Dimer, Quantitative (0-400) ng/mL Sodium 137 D (136-145) mmol/L Potassium 3.8 (3.5-5.1) mmol/L Chloride 104 (98-107) mmol/L Carbon Dioxide 20 L (21-32) mmol/L Anion Gap 16.8 H (7-13) mEq/L BUN 17 (7-18) mg/dL Creatinine 1.03 (0.70-1.30) mg/dL Est Cr Clr Drug Dosing 72.98 mL/min Estimated GFR (MDRD) > 60 BUN/Creatinine Ratio (No establ ref range) Glucose 173 H (74-99) mg/dL POC Glucose 172 H (70-105) mg/dl Lactic Acid (0.4-2.0) mmol/L Calcium 7.5 L (8.5-10.1) mg/dL Total Bilirubin (0.2-1.0) mg/dL AST (15-37) U/L ALT (16-63) U/L Alkaline Phosphatase (46-116) U/L C-Reactive Protein (0.0-0.9) mg/dL Total Protein (6.4-8.2) g/dL Albumin (3.4-5.0) g/dL Globulin Albumin/Globulin Ratio Amylase (25-115) U/L Lipase (73-393) U/L Urine Color (YELLOW) Urine Appearance (CLEAR) Urine pH (5.0-9.0) Ur Specific Ribera (1.005-1.030) Urine Protein (NEGATIVE) Urine Glucose (UA) (NEGATIVE) Urine Ketones (NEGATIVE) Urine Occult Blood (NEGATIVE) Urine Nitrite (NEGATIVE) Urine Bilirubin (NEGATIVE) Urine Urobilinogen (0.2-1.0) mg/dL Ur Leukocyte Esterase (NEGATIVE) Urine RBC /HPF Urine WBC (0-5/HPF) /HPF Ur Epithelial Cells (NOT SEEN) /HPF Urine Bacteria (0-FEW/HPF) /HPF Urine Opiates Screen (NEGATIVE) Ur Oxycodone Screen (NEGATIVE) Urine Methadone Screen (NEGATIVE) Ur Barbiturates Screen (NEGATIVE) U Tricyclic Antidepress (NEGATIVE) Ur Phencyclidine Scrn (NEGATIVE) Ur Amphetamine Screen (NEGATIVE) U Methamphetamines Scrn (NEGATIVE) Urine MDMA Screen (NEGATIVE) U Benzodiazepines Scrn (NEGATIVE) Urine Cocaine Screen (NEGATIVE) U Marijuana (THC) Screen (NEGATIVE) Ethyl Alcohol (0) mg/dL Influenza Type A RNA (NEGATIVE) Influenza Type B RNA (NEGATIVE) SARS-CoV-2 RNA (CAROL) (NEGATIVE) 10/12/20 10/12/20 10/12/20 Range/Units 06:34 06:34 06:34 WBC (5.0-10.0) 10^3/uL RBC (4.6-6.2) 10^6/uL Hgb (14.0-18.0) g/dL Hct (40.0-54.0) % MCV (80-100) fL MCH (27.0-34.0) pg MCHC (33.0-35.0) g/dL Plt Count (150-450) 10^3/uL Neut % (Auto) (42.2-75.2) % Lymph % (Auto) (20.5-50.1) % Rains % (Auto) (2-8) % Eos % (Auto) (1.0-3.0) % Baso % (Auto) (0.0-1.0) % Add Manual Diff Neutrophils % (Manual) (42-75) % Band Neutrophils % % Lymphocytes % (Manual) (20-50) % Monocytes % (Manual) (2-8) % Vacuolated Monocytes Toxic Granulation Platelet Estimate PT (9.0-12.0) SEC INR (0.9-1.2) D-Dimer, Quantitative 3420 H (0-400) ng/mL Sodium (136-145) mmol/L Potassium (3.5-5.1) mmol/L Chloride (98-107) mmol/L Carbon Dioxide (21-32) mmol/L Anion Gap (7-13) mEq/L BUN (7-18) mg/dL Creatinine (0.70-1.30) mg/dL Est Cr Clr Drug Dosing mL/min Estimated GFR (MDRD) BUN/Creatinine Ratio (No establ ref range) Glucose (74-99) mg/dL POC Glucose (70-105) mg/dl Lactic Acid 1.4 (0.4-2.0) mmol/L Calcium (8.5-10.1) mg/dL Total Bilirubin (0.2-1.0) mg/dL AST (15-37) U/L ALT (16-63) U/L Alkaline Phosphatase (46-116) U/L C-Reactive Protein > 36.0 H (0.0-0.9) mg/dL Total Protein (6.4-8.2) g/dL Albumin (3.4-5.0) g/dL Globulin Albumin/Globulin Ratio Amylase (25-115) U/L Lipase (73-393) U/L Urine Color (YELLOW) Urine Appearance (CLEAR) Urine pH (5.0-9.0) Ur Specific Ribera (1.005-1.030) Urine Protein (NEGATIVE) Urine Glucose (UA) (NEGATIVE) Urine Ketones (NEGATIVE) Urine Occult Blood (NEGATIVE) Urine Nitrite (NEGATIVE) Urine Bilirubin (NEGATIVE) Urine Urobilinogen (0.2-1.0) mg/dL Ur Leukocyte Esterase (NEGATIVE) Urine RBC /HPF Urine WBC (0-5/HPF) /HPF Ur Epithelial Cells (NOT SEEN) /HPF Urine Bacteria (0-FEW/HPF) /HPF Urine Opiates Screen (NEGATIVE) Ur Oxycodone Screen (NEGATIVE) Urine Methadone Screen (NEGATIVE) Ur Barbiturates Screen (NEGATIVE) U Tricyclic Antidepress (NEGATIVE) Ur Phencyclidine Scrn (NEGATIVE) Ur Amphetamine Screen (NEGATIVE) U Methamphetamines Scrn (NEGATIVE) Urine MDMA Screen (NEGATIVE) U Benzodiazepines Scrn (NEGATIVE) Urine Cocaine Screen (NEGATIVE) U Marijuana (THC) Screen (NEGATIVE) Ethyl Alcohol (0) mg/dL Influenza Type A RNA (NEGATIVE) Influenza Type B RNA (NEGATIVE) SARS-CoV-2 RNA (CAROL) (NEGATIVE) 10/12/20 Range/Units 07:44 WBC (5.0-10.0) 10^3/uL RBC (4.6-6.2) 10^6/uL Hgb (14.0-18.0) g/dL Hct (40.0-54.0) % MCV (80-100) fL MCH (27.0-34.0) pg MCHC (33.0-35.0) g/dL Plt Count (150-450) 10^3/uL Neut % (Auto) (42.2-75.2) % Lymph % (Auto) (20.5-50.1) % Rains % (Auto) (2-8) % Eos % (Auto) (1.0-3.0) % Baso % (Auto) (0.0-1.0) % Add Manual Diff Neutrophils % (Manual) (42-75) % Band Neutrophils % % Lymphocytes % (Manual) (20-50) % Monocytes % (Manual) (2-8) % Vacuolated Monocytes Toxic Granulation Platelet Estimate PT (9.0-12.0) SEC INR (0.9-1.2) D-Dimer, Quantitative (0-400) ng/mL Sodium (136-145) mmol/L Potassium (3.5-5.1) mmol/L Chloride (98-107) mmol/L Carbon Dioxide (21-32) mmol/L Anion Gap (7-13) mEq/L BUN (7-18) mg/dL Creatinine (0.70-1.30) mg/dL Est Cr Clr Drug Dosing mL/min Estimated GFR (MDRD) BUN/Creatinine Ratio (No establ ref range) Glucose (74-99) mg/dL POC Glucose 186 H (70-105) mg/dl Lactic Acid (0.4-2.0) mmol/L Calcium (8.5-10.1) mg/dL Total Bilirubin (0.2-1.0) mg/dL AST (15-37) U/L ALT (16-63) U/L Alkaline Phosphatase (46-116) U/L C-Reactive Protein (0.0-0.9) mg/dL Total Protein (6.4-8.2) g/dL Albumin (3.4-5.0) g/dL Globulin Albumin/Globulin Ratio Amylase (25-115) U/L Lipase (73-393) U/L Urine Color (YELLOW) Urine Appearance (CLEAR) Urine pH (5.0-9.0) Ur Specific Ribera (1.005-1.030) Urine Protein (NEGATIVE) Urine Glucose (UA) (NEGATIVE) Urine Ketones (NEGATIVE) Urine Occult Blood (NEGATIVE) Urine Nitrite (NEGATIVE) Urine Bilirubin (NEGATIVE) Urine Urobilinogen (0.2-1.0) mg/dL Ur Leukocyte Esterase (NEGATIVE) Urine RBC /HPF Urine WBC (0-5/HPF) /HPF Ur Epithelial Cells (NOT SEEN) /HPF Urine Bacteria (0-FEW/HPF) /HPF Urine Opiates Screen (NEGATIVE) Ur Oxycodone Screen (NEGATIVE) Urine Methadone Screen (NEGATIVE) Ur Barbiturates Screen (NEGATIVE) U Tricyclic Antidepress (NEGATIVE) Ur Phencyclidine Scrn (NEGATIVE) Ur Amphetamine Screen (NEGATIVE) U Methamphetamines Scrn (NEGATIVE) Urine MDMA Screen (NEGATIVE) U Benzodiazepines Scrn (NEGATIVE) Urine Cocaine Screen (NEGATIVE) U Marijuana (THC) Screen (NEGATIVE) Ethyl Alcohol (0) mg/dL Influenza Type A RNA (NEGATIVE) Influenza Type B RNA (NEGATIVE) SARS-CoV-2 RNA (CAROL) (NEGATIVE) PALLAVI Results - Last 24 hrs: Microbiology 10/11/20 19:25 Urine Culture - Preliminary Urine, Clean Catch NO GROWTH AFTER 1 DAY 10/11/20 17:09 Aerobic Blood Culture - Preliminary Blood - Arm, Left Anaerobic Blood Culture - Preliminary 10/11/20 17:04 Aerobic Blood Culture - Preliminary Blood - Arm, Right Anaerobic Blood Culture - Preliminary 10/11/20 17:10 Group A Streptococcus Rapid Screen - Final Throat NEGATIVE STREP A SCREEN REFERENCE RANGE: NEGATIVE Med Orders - Current: Current Medications Acetaminophen (Acetaminophen 650 Mg Supp) 650 mg RECTAL Q4H PRN PRN Reason: Pain (mild 1-3) Albuterol/Ipratropium (Albuterol/Ipratropium 3.0-0.5 Mg/3 Ml Neb Soln) 3 ml NEB Q6H PRN PRN Reason: Shortness of Breath Aspirin (Aspirin 81 Mg Tab.Chew) 81 mg PO QAM [facility] Last Admin: 10/12/20 09:39 Dose: 81 mg Documented by: Dextrose/Water (50% Dextrose In Water 50 Ml Syringe) 50 ml IV Q15M PRN PRN Reason: Hypoglycemia Docusate Sodium (Docusate Sodium 100 Mg Cap) 100 mg PO BID PRN PRN Reason: Constipation Enoxaparin Sodium (Enoxaparin 40 Mg/0.4 Ml Syringe) 40 mg SUBCUT Q24H [facility] Last Admin: 10/11/20 22:27 Dose: 40 mg Documented by: Folic Acid (Folic Acid 1 Mg Tab) 1 mg PO DAILY [facility] Last Admin: 10/12/20 09:39 Dose: 1 mg Documented by: Glucagon (Glucagon,Human Recombinant 1 Mg Vial) 1 mg IM Q15M PRN PRN Reason: Hypoglycemia Hydrocortisone Sodium Succinate (Hydrocortisone Sodium Succinate 100 Mg/2 Ml Sdv) 75 mg IV Q6H [facility] Last Admin: 10/12/20 04:34 Dose: 75 mg Documented by: Insulin Glargine (Insulin Glarg,Human.Rec.Analog 100 Unit/Ml) 42 unit SUBCUT QAM [facility] Last Admin: 10/12/20 09:42 Dose: 42 units Documented by: Insulin Human Lispro (Insulin Lispro 100 Units/Ml 3 Ml Vial) 12 unit SUBCUT TID [facility] Last Admin: 10/12/20 09:30 Dose: Not Given Documented by: Insulin Human Lispro (Insulin Lispro 100 Units/Ml 3 Ml Vial) 0 unit SUBCUT WITHMEALSANDBED [facility]; Protocol Last Admin: 10/12/20 09:44 Dose: 3 units Documented by: Latanoprost (Latanoprost 0.005% Ophth Soln 2.5 Ml Bottle) 0 ml EYEBOTH DAILY [facility] Levofloxacin (Levofloxacin 250 Mg Tab) 750 mg PO Q24H [facility] Non-Formulary Medication (Brimonidine/Timolol [Combigan 0.2%/0.5% Ophth Soln]) 1 drop EYELF DAILY [facility] Ondansetron HCl (Ondansetron 4 Mg/2 Ml Sdv) 4 mg IVPUSH Q6H PRN PRN Reason: Nausea/Vomiting Prednisone (Prednisone 5 Mg Tab) 5 mg PO DAILY [facility] Last Admin: 10/12/20 09:39 Dose: 5 mg Documented by: Sertraline HCl (Sertraline 50 Mg Tab) 100 mg PO DAILY [facility] Last Admin: 10/12/20 09:39 Dose: 100 mg Documented by: Sodium Chloride (Sodium Chloride 0.9% 10 Ml Syringe) 10 ml FLUSH ASDIRECTED PRN PRN Reason: Keep Vein Open Last Admin: 10/11/20 16:55 Dose: 10 ml Documented by: Sodium Chloride (Sodium Chloride 0.9% 10 Ml Syringe) 10 ml FLUSH ASDIRECTED PRN PRN Reason: Keep Vein Open Last Admin: 10/11/20 18:24 Dose: 10 ml Documented by: Zolpidem Tartrate (Zolpidem 5 Mg Tab) 5 mg PO BEDTIME PRN PRN Reason: Sleep Discontinued Medications Acetaminophen (Acetaminophen 325 Mg Tab) 975 mg PO NOW ONE Stop: 10/11/20 16:59 Last Admin: 10/11/20 17:05 Dose: 975 mg Documented by: Hydrocortisone Sodium Succinate (Hydrocortisone Sodium Succinate 250 Mg/2 Ml Sdv) 75 mg IV Q6H [facility] Last Admin: 10/11/20 22:39 Dose: 75 mg Documented by: Sodium Chloride (Normal Saline) 1,000 mls @ 999 mls/hr IV .BOLUS ONE Stop: 10/11/20 17:52 Last Infusion: 10/11/20 18:06 Dose: Infused Documented by: Levofloxacin/Dextrose 500 mg/ (Premix) 100 mls @ 100 mls/hr IV ONETIME ONE Stop: 10/11/20 18:26 Last Infusion: 10/11/20 21:04 Dose: Infused Documented by: Sodium Chloride (Normal Saline) 1,000 mls @ 999 mls/hr IV .BOLUS ONE Stop: 10/11/20 18:28 Last Infusion: 10/11/20 21:04 Dose: Infused Documented by: Sodium Chloride (Normal Saline) 1,000 mls [facility] Admin: 10/11/20 22:35 Dose: 125 mls/hr Documented by: Vancomycin HCl 1.5 gm/ Premix 300 mls @ 200 mls/hr IV ONETIME ONE Stop: 10/11/20 23:53 Last Admin: 10/11/20 22:44 Dose: 200 mls/hr Documented by: Sodium Chloride (Normal Saline) 1,000 mls @ 500 [facility] Last Admin: 10/11/20 22:30 Dose: 500 mls/hr Documented by: Piperacillin Sod/Tazobactam (Sod 3.375 gm/ Sodium Chloride) 100 mls @ 200 mls/h r IV ONETIME ONE Stop: 10/11/20 22:59 Last Admin: 10/12/20 00:21 Dose: 200 mls/hr Documented by: Ibuprofen (Ibuprofen 800 Mg Tab) 800 mg PO ONETIME ONE Stop: 10/11/20 16:59 Last Admin: 10/11/20 17:05 Dose: 800 mg Documented by: Iopamidol (Iopamidol 755 Mg/Ml 100 Ml Bottle) 100 ml IVPUSH ONETIME ONE Stop: 10/11/20 18:16 Last Admin: 10/11/20 19:12 Dose: 70 ml Documented by: Morphine Sulfate (Morphine 2 Mg/Ml Syringe) 2 mg IVPUSH ONETIME ONE Stop: 10/11/20 17:30 Last Admin: 10/11/20 18:23 Dose: 2 mg Documented by:
[2020-10-12] MEDS ORDERED: Levofloxacin 250 MG Tab PO SCH (18:00)
== END 2020-10-12 11:59 | disposition other institution (70) | DRG 872 ==
LOC: DL.ED 16:18 → DL.MS 20:06
PROVIDERS: ADMIT Internal Medicine; ATTEND Internal Medicine
DX: A41.9 Sepsis, unspecified organism (principal); E87.6 Hypokalemia; A41.89 Other specified sepsis; D84.9 Immunodeficiency, unspecified; I76 Septic arterial embolism; E87.1 Hypo-osmolality and hyponatremia; Z20.822 Contact with and (suspected) exposure to COVID-19; K04.7 Periapical abscess without sinus; J45.909 Unspecified asthma, uncomplicated; J40 Bronchitis, not specified as acute or chronic; R65.20 Severe sepsis without septic shock; M06.9 Rheumatoid arthritis, unspecified; H54.7 Unspecified visual loss; I50.9 Heart failure, unspecified; H40.9 Unspecified glaucoma; F17.200 Nicotine dependence, unspecified, uncomplicated; M79.10 Myalgia, unspecified site; R79.89 Other specified abnormal findings of blood chemistry; E11.9 Type 2 diabetes mellitus without complications; Z79.82 Long term (current) use of aspirin; Z79.52 Long term (current) use of systemic steroids; Z79.899 Other long term (current) drug therapy; Z79.4 Long term (current) use of insulin
CPT/HCPCS: 0240U; 36415; 71045; 71260; 80048; 80053; 80305; 80307; 81001; 82150; 82962; 83605; 83690; 85025; 85379; 85610; 86140; 87040; 87077; 87081; 87086; 87088; 87186; 87430; 96365; 96375; 99285; 99284; A9270-GY; J1650; J1720; J1815-GY; J1956; J2270; J2543; J3370; J7030; J7512; Q9967

== ENCOUNTER 2021-12-25 17:32 | Emergency (ER) | payer MEDICARE, OTHER | END 2021-12-25 18:23 | disposition home or self-care (01) | LOC: DL.ED 17:32 | DX: B35.6 Tinea cruris (principal); E11.628 Type 2 diabetes mellitus with other skin complications; Z79.01 Long term (current) use of anticoagulants; Z79.4 Long term (current) use of insulin | CPT/HCPCS: 99283; 99284 ==

== ENCOUNTER 2023-01-25 18:18 | Emergency (ER) | payer MEDICARE | END 2023-01-25 19:38 | disposition left against medical advice (07) | LOC: DL.ED 18:18 | DX: Z53.21 Procedure and treatment not carried out due to patient leaving prior to being seen by health care provider (principal) ==